=== PATIENT | female | born 1955 | race Caucasian/White ===

== ENCOUNTER → 2023-04-26 10:14 | Outpatient (REF) | payer OTHER, SELFPAY | LOC: HWWDC 10:14 | PROVIDERS: ATTENDING PHYSICIAN Nurse Practitioner Adult Health; FAMILY PHYSICIAN Family Medicine | DX: Z12.31 Encounter for screening mammogram for malignant neoplasm of breast (principal) | CPT/HCPCS: 77063; 77067 ==

== ENCOUNTER 2023-09-10 20:16 | Inpatient (IN) | payer OTHER, SELFPAY ==
[2023-09-10] VITALS (7 sets, daily range): BP systolic 139–169; BP diastolic 62–87; BMI 29.3; BMI 29.0
[2023-09-10 14:33] LABS: % Basophils 0.1 % (0-2); % Immature Granulocytes 0.3 % (0-0.5); % Lymphocytes 9.3 % (20.5-51.1); % Monocytes 7.8 % (1.7-9.3); % Neutrophils 82.5 % (42.2-75.2); Absolute Lymphocytes 0.7 10^3/uL (1.2-3.4); Absolute Monocytes 0.6 10^3/uL (0.1-0.6); Absolute Neutrophils 6.6 10^3/uL (1.4-6.5); Hematocrit 39.1 % (37.0-47.0); Hemoglobin 14.1 g/dL (12.0-16.0); Mean Corp Hgb Conc. 36.1 g/dL (33.0-37.0); Mean Corpuscular Hgb 32.3 pg (27.0-31.0); Mean Corpuscular Volume 89.5 fL (81.0-99.0); Mean Platelet Volume 9.3 fL (7.4-10.4); Nucleated Red Blood Cells % 0 %; Platelet Count 289 10^3/uL (130-400); Red Blood Cell Count 4.37 10^6/uL (4.20-5.40); Red Cell Dist. Width 12.1 % (11.5-14.5)
[2023-09-10 14:52] LABS: ALT (SGPT) 20 U/L (0-35); AST (SGOT) 28 U/L (14-36); Albumin 4.3 g/dl (3.5-5.0); Alkaline Phosphatase 145 U/L (38-126); Blood Urea Nitrogen 16 mg/dl (7-17); Calcium 9.8 mg/dl (8.4-10.2); Carbon Dioxide 25 mmol/L (22-30); Chloride 96 mmol/L (98-107); Estimated Creatinine Clearance 83 ml/min; Glucose 116 mg/dl (70-99); Sodium 130 mmol/L (135-145); Total Bilirubin 0.3 mg/dl (0.2-1.3); Total Protein 6.9 g/dl (6.3-8.2); eGFR > 60.00
--- NOTE | 2023-09-10 14:59 | ED.GENMED ---
History of Present Illness
<Deedee Jimenez PATTERN DRAFTER - Last Filed: 09/12/23 10:06>
General
Chief Complaint: Anal/Rectal Problem
Source: patient
Exam Limitations: none
Time Seen by Provider: 09/10/23 14:24
Nursing documentation reviewed up to this point in time: agreed with
History of Present Illness
History of Present Illness:
68-year-old female with history of colitis x 2 in the past, IBS, depression, scoliosis, chronic back pain, 2 spinal fusions, last one 11/28, presents stating 2 nights ago she was nauseous and started vomiting and tested positive for COVID at that
time. Her doctor prescribed Zofran which helped and she felt a little better until 2 AM this morning she developed generalized abdominal pain, broke out in a sweat, started having soft bowel movements. Went back to bed and this morning 11 AM, she
had a soft bowel movement with blood mixed in with it.
Her abdominal pain at this time is 7/10, generalized.
Past History
<Deedee Jimenez, PATTERN DRAFTER - Last Filed: 09/12/23 10:06>
Past History
ED Past Medical History: HTN and Other (Ambulatory dysfunction scoliosis back pain, previous colitis, previous diverticulosis, skin cancer with recent 5-FU topical)
ED Past Surgical History: Orthopedic (Bilateral hip replacements, bilateral knee replacements, spinal fusion due to scoliosis)
Social History
Tobacco: Non-smoker
Alcohol: None
Personal: Other ()
Living: alone
Employment: Not employed
Family History
Family History: Other (Hypertension, skin cancer)
Review of Systems
<Deedee Jimenez, PATTERN DRAFTER - Last Filed: 09/12/23 10:06>
Review of Systems
Allergies reviewed?: Yes
All Other Systems: ROS reviewed and negative except as documented in HPI and ROS
Constitutional: Denies fever
Respiratory: Denies trouble breathing
Cardiac: Denies chest pain
ABD/GI: Reports abdominal pain, nausea and bloody stools; Denies vomiting, diarrhea or anorexia
: Denies dysuria or difficulty voiding
Musculoskeletal: Reports no symptoms
Skin: Reports no symptoms
Neurological: Reports no symptoms
Phy Exam
<Deedee Jimenez, PATTERN DRAFTER - Last Filed: 09/12/23 10:06>
Physical Exam
Physical Exam:
GENERAL: No acute distress. A&Ox3.
CONSTITUTIONAL: Afebrile.
EYES: clear, conjunctivae normal
ENMT: moist mucus membranes, Pharynx nl
RESPIRATORY: Regular respirations, nonlabored, lungs clear.
CARDIOVASCULAR: Regular rate and rhythm, no murmurs, no rubs.
GI: Soft, generally tender to palpation, normal BS
MUSCULOSKELETAL: Moves with ease. Well perfused.
SKIN: Warm, dry, pink
PSYCH: Normal mood and affect. Well kept, interactive and appropriate
NEUROLOGIC: Awake, alert and oriented. No focal neurological deficits
Course
<Deedee Jimenez, PATTERN DRAFTER - Last Filed: 09/12/23 10:06>
Orders/Labs/Results
Orders:
Orders
09/10/23 14:17
C-Reactive Protein Urgent
Comment: ADD ON
CBC/With Diff [Complete Blood Count/With Diff] Urgent
Comprehensive Metabolic Panel Urgent
Lipase Urgent
Comment: ADD ON
09/10/23 14:58
Add On- LAB Urgent
Tests Added?: Lipase, CRP
CT Abd/Pel (IV only)-DH only Urgent
Comment:
Reason For Exam: gen abd pain, hx colitis x2, bloody stool
09/10/23 14:59
0.9% Sodium Chloride 1000 ml [Nss] 1,000 ml IV BOLUS
09/10/23 15:16
Ketorolac [Toradol] 15 mg IV NOW STA
Ondansetron Injectable [Zofran] 4 mg IV NOW STA
09/10/23 16:03
Lactic Acid Urgent
09/10/23 18:50
LevoFLOXacin 500 MG/100 ML [Levaquin] 500 mg in 100 ml IV NOW
MetroNIDAZOLE 500 MG/100 ML [Flagyl 500 mg] 100 ml IV NOW
09/10/23 19:52
Calprotectin, Fecal [S] Urgent
Date Specimen was Collected: 09/10/23
Time Specimen was Collected: 19:49
Giardia/Cryptosporidium Ag Urgent
AMANDA Source: ST
Specimen Description:
Date Specimen was Collected: 09/10/23
Time Specimen was Collected: 19:49
Norovirus by PCR Urgent
AMANDA Source: ST
Specimen Description:
Date Specimen was Collected: 09/10/23
Time Specimen was Collected: 19:49
STOOL [C difficile Antigen & Toxins] Urgent
AMANDA Source: Feces/Stool
Specimen Description:
Date Specimen was Collected: 09/10/23
Time Specimen was Collected: 19:49
Stool Culture Urgent
AMANDA Source: Feces/Stool
Specimen Description:
Date Specimen was Collected: 09/10/23
Time Specimen was Collected: 19:49
09/10/23 20:02
Admit/Transfer Patient As Directed
Co-Sign Provider:
Level of Care: Inpatient admission
Assign to:: Medical/Surgical
Physician / Group: jose rafael
Transfer to: Medical/Surgical
Diagnosis: severe colitis
Patient Condition: Fair
Reason for Hospitalization: severe colitis
Expected length of stay greater than two midnights?: Yes
ELOS- Estimated Length of Stay in days: 2
I certify the patient meets the requirements for IP care: Yes
PRN Pain Medication Management As Directed
May give lesser potent ordered pain med per pt: Yes
preference::
Protocol:: Medication orders for pain may be administered in a
manner that supports deferring to patient preference
when the pt is:
- Requesting an ordered lesser potent pain medication.
Least to most potent pain medications are defined
as: acetaminophen < NSAID < tramadol < opioids
(morphine, oxycodone, hydromorphone).
- Requesting a lesser dose of the same medication IF
ORDERED.
- Requesting a less intrusive route of administration
if both routes are prescribed by the provider (PO <
IV).
09/10/23 20:05
Code Status As Directed
Resuscitation Status: Full Code
09/10/23 20:10
Guaifenesin [Mucinex] 600 mg PO Q12 PRN
09/10/23 20:31
Morphine Sulfate 2 mg IV Q4HPRN PRN
Ondansetron Injectable [Zofran] 4 mg IV Q6HPRN PRN
09/10/23 21:09
0.9% Sodium Chloride 1000 ml [Nss] 1,000 ml IV 100 mls/hr
Acetaminophen [Tylenol] 650 mg PO Q6HPRN PRN
Albuterol Nebs [Ventolin Nebules] 2.5 mg INH R Q4HPRN PRN
Alprazolam [Xanax] 0.5 mg PO BIDPRN PRN
09/10/23 21:09
Activity As Directed
Activity Level: As Tolerated
Intake/ Output As Directed
Frequency: Per unit guidelines
Pneumatic Compression Sleeves As Directed
Type: Knee high
Vital Signs As Directed
Frequency: Per unit guidelines
CR Chest Portable - 1 View Urgent
Comment:
Reason For Exam: covid, r/o infiltrates
Reason Study Needs to be Portable: Unable to Transport
DX Deep Vein Thrombosis Video Routine
09/10/23 22:00
plecanatide [Trulance] See Dose Instructions PO HS
09/11/23 04:00
MetroNIDAZOLE 500 MG/100 ML [Flagyl 500 mg] 100 ml IV Q8H
09/11/23 05:02
Basic Metabolic Panel IN AM
CRP [C-Reactive Protein] IN AM
Complete Blood Count/With Diff IN AM
D-Dimer IN AM
Ferritin IN AM
Magnesium IN AM
PTT IN AM
Prothrombin Time IN AM
TSH IN AM
09/11/23 08:00
ARIPiprazole [Abilify] 5 mg PO DAILY
Venlafaxine Extended Release [Effexor Xr] 150 mg PO DAILY
09/11/23 18:00
LevoFLOXacin 750 MG/150 ML [Levaquin] 750 mg in 150 ml IV Q24H
Tolterodine Extended Release [Detrol LA] 4 mg PO QPM
Abnormal Lab Results
09/10/23
14:17
MCH 32.3 H pg
(27.0-31.0)
Absolute Neuts (auto) 6.6 H 10^3/uL
(1.4-6.5)
Absolute Lymphs (auto) 0.7 L 10^3/uL
(1.2-3.4)
Neutrophils % 82.5 H %
(42.2-75.2)
Lymphocytes % 9.3 L %
(20.5-51.1)
Sodium 130 L mmol/L
(135-145)
Chloride 96 L mmol/L
(98-107)
Glucose 116 H mg/dl
(70-99)
Alkaline Phosphatase 145 H U/L
(38-126)
09/10/23 14:17
09/10/23 14:17
Vital Signs
Initial and Last Documented VS:
Initial Vital Signs
Temp Pulse Resp BP Pulse Ox
98.3 F 70 18 169/87 99
09/10/23 12:22 09/10/23 12:22 09/10/23 12:22 09/10/23 12:22 09/10/23 12:22
Last Documented Vital Signs
Temp Pulse Resp BP Pulse Ox
98.0 F 72 16 137/70 94
09/12/23 07:10 09/12/23 08:22 09/12/23 07:10 09/12/23 08:22 09/12/23 07:10
<Emma Musa PA-C - Last Filed: 09/10/23 21:15>
Orders/Labs/Results
Orders:
Orders
09/10/23 14:17
C-Reactive Protein Urgent
Comment: ADD ON
CBC/With Diff [Complete Blood Count/With Diff] Urgent
Comprehensive Metabolic Panel Urgent
Lipase Urgent
Comment: ADD ON
09/10/23 14:58
Add On- LAB Urgent
Tests Added?: Lipase, CRP
CT Abd/Pel (IV only)-DH only Urgent
Comment:
Reason For Exam: gen abd pain, hx colitis x2, bloody stool
09/10/23 14:59
0.9% Sodium Chloride 1000 ml [Nss] 1,000 ml IV BOLUS
09/10/23 15:16
Ketorolac [Toradol] 15 mg IV NOW STA
Ondansetron Injectable [Zofran] 4 mg IV NOW STA
09/10/23 16:03
Lactic Acid Urgent
09/10/23 18:50
LevoFLOXacin 500 MG/100 ML [Levaquin] 500 mg in 100 ml IV NOW
MetroNIDAZOLE 500 MG/100 ML [Flagyl 500 mg] 100 ml IV NOW
09/10/23 19:52
Calprotectin, Fecal [S] Urgent
Date Specimen was Collected: 09/10/23
Time Specimen was Collected: 19:49
Giardia/Cryptosporidium Ag Urgent
AMANDA Source: ST
Specimen Description:
Date Specimen was Collected: 09/10/23
Time Specimen was Collected: 19:49
Norovirus by PCR Urgent
AMANDA Source: ST
Specimen Description:
Date Specimen was Collected: 09/10/23
Time Specimen was Collected: 19:49
STOOL [C difficile Antigen & Toxins] Urgent
AMANDA Source: Feces/Stool
Specimen Description:
Date Specimen was Collected: 09/10/23
Time Specimen was Collected: 19:49
Stool Culture Urgent
AMANDA Source: Feces/Stool
Specimen Description:
Date Specimen was Collected: 09/10/23
Time Specimen was Collected: 19:49
09/10/23 20:02
Admit/Transfer Patient As Directed
Co-Sign Provider:
Level of Care: Inpatient admission
Assign to:: Medical/Surgical
Physician / Group: jose rafael
Transfer to: Medical/Surgical
Diagnosis: severe colitis
Patient Condition: Fair
Reason for Hospitalization: severe colitis
Expected length of stay greater than two midnights?: Yes
ELOS- Estimated Length of Stay in days: 2
I certify the patient meets the requirements for IP care: Yes
PRN Pain Medication Management As Directed
May give lesser potent ordered pain med per pt: Yes
preference::
Protocol:: Medication orders for pain may be administered in a
manner that supports deferring to patient preference
when the pt is:
- Requesting an ordered lesser potent pain medication.
Least to most potent pain medications are defined
as: acetaminophen < NSAID < tramadol < opioids
(morphine, oxycodone, hydromorphone).
- Requesting a lesser dose of the same medication IF
ORDERED.
- Requesting a less intrusive route of administration
if both routes are prescribed by the provider (PO <
IV).
09/10/23 20:05
Code Status As Directed
Resuscitation Status: Full Code
09/10/23 20:10
Guaifenesin [Mucinex] 600 mg PO Q12 PRN
09/10/23 20:31
Morphine Sulfate 2 mg IV Q4HPRN PRN
Ondansetron Injectable [Zofran] 4 mg IV Q6HPRN PRN
09/10/23 21:09
0.9% Sodium Chloride 1000 ml [Nss] 1,000 ml IV 100 mls/hr
Acetaminophen [Tylenol] 650 mg PO Q6HPRN PRN
Albuterol Nebs [Ventolin Nebules] 2.5 mg INH R Q4HPRN PRN
Alprazolam [Xanax] 0.5 mg PO BIDPRN PRN
09/10/23 21:09
Activity As Directed
Activity Level: As Tolerated
Intake/ Output As Directed
Frequency: Per unit guidelines
Pneumatic Compression Sleeves As Directed
Type: Knee high
Vital Signs As Directed
Frequency: Per unit guidelines
CR Chest Portable - 1 View Urgent
Comment:
Reason For Exam: covid, r/o infiltrates
Reason Study Needs to be Portable: Unable to Transport
DX Deep Vein Thrombosis Video Routine
09/10/23 22:00
plecanatide [Trulance] See Dose Instructions PO HS
09/11/23 04:00
MetroNIDAZOLE 500 MG/100 ML [Flagyl 500 mg] 100 ml IV Q8H
09/11/23 05:02
Basic Metabolic Panel IN AM
CRP [C-Reactive Protein] IN AM
Complete Blood Count/With Diff IN AM
D-Dimer IN AM
Ferritin IN AM
Magnesium IN AM
PTT IN AM
Prothrombin Time IN AM
TSH IN AM
09/11/23 08:00
ARIPiprazole [Abilify] 5 mg PO DAILY
Venlafaxine Extended Release [Effexor Xr] 150 mg PO DAILY
09/11/23 18:00
LevoFLOXacin 750 MG/150 ML [Levaquin] 750 mg in 150 ml IV Q24H
Tolterodine Extended Release [Detrol LA] 4 mg PO QPM
Abnormal Lab Results
09/10/23
14:17
MCH 32.3 H pg
(27.0-31.0)
Absolute Neuts (auto) 6.6 H 10^3/uL
(1.4-6.5)
Absolute Lymphs (auto) 0.7 L 10^3/uL
(1.2-3.4)
Neutrophils % 82.5 H %
(42.2-75.2)
Lymphocytes % 9.3 L %
(20.5-51.1)
Sodium 130 L mmol/L
(135-145)
Chloride 96 L mmol/L
(98-107)
Glucose 116 H mg/dl
(70-99)
Alkaline Phosphatase 145 H U/L
(38-126)
09/10/23 14:17
09/10/23 14:17
Vital Signs
Initial and Last Documented VS:
Initial Vital Signs
Temp Pulse Resp BP Pulse Ox
98.3 F 70 18 169/87 99
09/10/23 12:22 09/10/23 12:22 09/10/23 12:22 09/10/23 12:22 09/10/23 12:22
Last Documented Vital Signs
Temp Pulse Resp BP Pulse Ox
98.0 F 72 16 137/70 94
09/12/23 07:10 09/12/23 08:22 09/12/23 07:10 09/12/23 08:22 09/12/23 07:10
<Deedee Jimenez PATTERN DRAFTER - Last Filed: 09/12/23 10:06>
MDM/Problems Addressed
Differential Diagnosis Includes:
Colitis, diverticulitis, ischemic vs inflammatory vs infectious colitis/diverticulitis
MDM/Problems Addressed:
68-year-old female with history of colitis x 2 in the past, IBS, depression, scoliosis, chronic back pain, 2 spinal fusions, last one 11/28, presents stating 2 nights ago she was nauseous and started vomiting and tested positive for COVID at that
time. Her doctor prescribed Zofran which helped and she felt a little better until 2 AM this morning she developed generalized abdominal pain, broke out in a sweat, started having soft bowel movements. Went back to bed and this morning 11 AM, she
had a soft bowel movement with blood mixed in with it.
Her abdominal pain at this time is 7/10, generalized.
Afebrile
3:30 PM:
CBC with no clinically significant abnormality
CMP with no clinically significant abnormality
Lactic normal
Case discussed with DIANA Rosario who will assume care from this point.
CT scan pending
Chronic conditions affecting care: Other (IBS)
<Emma Musa PA-C - Last Filed: 09/10/23 21:15>
MDM/Problems Addressed
MDM/Problems Addressed:
68-year-old female with history of colitis x 2 in the past, IBS, depression, scoliosis, chronic back pain, 2 spinal fusions, last one 11/28, presents stating 2 nights ago she was nauseous and started vomiting and tested positive for COVID at that
time. Her doctor prescribed Zofran which helped and she felt a little better until 2 AM this morning she developed generalized abdominal pain, broke out in a sweat, started having soft bowel movements. Went back to bed and this morning 11 AM, she
had a soft bowel movement with blood mixed in with it.
Her abdominal pain at this time is 7/10, generalized.
Afebrile
3:30 PM:
CBC with no clinically significant abnormality
CMP with no clinically significant abnormality
Lactic normal
Case discussed with DIANA Rosario who will assume care from this point.
CT scan pending
09/10/2023 1830PM
I assumed care from Dianne jimenez pending patient CT scan for abdominal pain and bloody diarrhea. Patient has previously had both infectious and ischemic colitis. The last episode was in 2021. She has known COVID infection from home test taken 2 days
ago. Currently the patient has minimal pain but she does feel like she could have a bowel movement which we will collect for sample. Her lactate was normal, hemoglobin stable, white count normal, blood pressure stable and her CT does confirm
severe colitis.
Previously patient was admitted and although they felt it was ischemic in nature she was given IV antibiotics, she will be given Levaquin and Flagyl as she has had previously and admitted to medicine.
<Emma Musa PA-C - Last Filed: 09/10/23 21:15>
*Critical Care Note
Total Time (30-74mins, 75-104mins- exclusive of procedures): Not Applicable
ED Attending Note
<Deedee Jimenez NP - Last Filed: 09/12/23 10:06>
-
Portions of this chart may have been created with voice recognition software.� Occasional wrong word or��sound alike� substitutions may have occurred due to the inherent limitations of voice recognition software.
Discharge Plan
Departure
Patient Disposition: Admit
Date of Disposition: 09/10/23
Time of Disposition: 18:48
Admit to: Med/Surg
Presentation/result/management discussed w/ accepting MD/DO: Hospitalist
Condition: Fair
Covid-19: Not Applicable
Discharge Problem:
Colitis
Interventions
Interventions:
*Risk Screen - Suicide Last Done: 09/10/23 12:22
*General Assessment Last Done: 09/10/23 12:22
*Neglect/Abuse Screening Last Done: 09/10/23 12:22
ED- Fall Risk Assessment Last Done: 09/10/23 15:08
*ED COVID-19 Vaccine History Last Done: 09/10/23 14:06
*Nursing Disposition Last Done: 09/10/23 21:10
PT-Vcdrqc-Ymyuotbidr Assessment Last Done: 09/10/23 16:00
ED-Skin Assessment Last Done: 09/10/23 15:08
Discharge Date and Time
Discharge Date/Time: 09/10/23 21:12
[2023-09-10] MEDS: NSS 1000 IV ×2 (15:28→21:35)
[2023-09-10] MEDS: TORADOL 15 MG IV (15:28)
[2023-09-10] MEDS: ZOFRAN 4 MG IV ×2 (15:29→20:39)
[2023-09-10 16:11] LABS: Lipase 52 U/L (23-300)
[2023-09-10 16:33] LABS: Lactic Acid 1.1 mmol/L (0.7-2.0)
[2023-09-10] MEDS: LEVAQUIN 100 IV (19:30)
[2023-09-10] MEDS: FLAGYL 500 MG 100 IV (19:33)
--- NOTE | 2023-09-10 20:12 | HPS.HSE ---
Family Physician
-
Family Physician: Antonio Reardon DO
Chief Complaint
-
Abdominal Pain and Bloody Diarrhea
History of Present Illness
68yo F with PMH Colitis, IBS, HTN, Anx/Depression, Hyponatremia presents to ER wtih complaint of abdominal pain and bloody diarrhea. Pt states on Monday she had N/V and general malaise. She tested positive for COVID without any known exposure
(endorses full vaccination status). Monday she developped lower banding abdominal pain and diaphoresis progressing to dark bloody diarrhea today. Endorses similar recurrence about 3-4 years ago treated with lev/flagyl. Last colo approx 3 years ago
with benign polyps reported. Denies dizziness/LH, fever, chest pain, palps, wheezing, cough, sob, dysuria, flank pain, calf or leg pain.
ER course: Pt presents wtih Tmax 99.2, other V.S.S. WBC 8.0K. Hgb 14.1 g/dL. Na 130. BUN/Cr 16/0.7. BG 116. CT a/p with severe left colitis and simple right renal cyst 2.1cm and mild diverticulosis. Stool cultures/cdiff sent. S/P Levaquin/flagyl,
15mg IV toradol, 1LNS, and 4mg IV zofran in ER.
GI: [facility]
Medical History
Past Medical History
Past Medical History: Reports Other (Colitis, IBS, HTN, Anx/Depression, Hyponatremia )
Past Surgical History: Reports Other (Lumbar Spine Fusion (11/2022), B/L Hips, B/L TKR)
Social History
Tobacco: Non-smoker
Alcohol: None
Drug: Marijuana (vapes)
Family History
Family History: Other (Mother and Father with HTN. )
Allergies / Home Medications
Allergies reflects when Allergies were last updated in [facility].
Home Medications with original date entered in [facility]
Allergy/Medication List:
Allergies
Allergy/AdvReac Type Severity Reaction Status Date / Time
cephalexin [From Keflex] Allergy Rash Verified 09/10/23 12:22
Home Medications
venlafaxine 150 mg capsule,extended release 24 hr (Effexor XR) 150 mg PO DAILY 02/22/17
alprazolam 0.5 mg tablet 0.5 mg PO BIDPRN PRN anxiety 05/17/21
acetaminophen 325 mg capsule (Tylenol) 650 mg (2 x 325 mg) PO Q6HPRN PRN PAIN #30 caps 05/20/21
aripiprazole 5 mg tablet 5 mg PO DAILY 09/10/23
lisinopril 20 mg-hydrochlorothiazide 12.5 mg tablet 2 tab PO DAILY 09/10/23
ondansetron HCl 8 mg tablet 8 mg PO Q8HPRN PRN nausea/vomiting 09/10/23
plecanatide 3 mg tablet (Trulance) 3 mg PO HS 09/10/23
teriparatide 20 mcg/dose (600 mcg/2.4 mL) subcutaneous pen injector (Forteo) 0 mcg SC DAILY@1500 09/10/23
vibegron 75 mg tablet (Gemtesa) 75 mg PO QPM 09/10/23
Review of Systems
-
A 12 point ROS was completed and negative except as noted: Yes
Physical Exam
Vital Signs
Vital Signs
Temp Pulse Resp BP Pulse Ox
98.3 F 65 18 150/68 97
09/10/23 12:22 09/10/23 14:00 09/10/23 14:00 09/10/23 14:00 09/10/23 14:00
Physical Exam
General: Well Developed, Well Nourished and No Apparent Distress
HEENT: NormoCephalic, Moist mucous membranes and Atraumatic
Respiratory: Clear
Cardiac: S1/S2 and Regular Rhythm; No Murmur or Rub
GI: Soft, Non Distended, Normal Bowel Sounds and Other (+TTP lower abdomen. Dark bloody liquid stool visualized in toilet. ); No Organomegaly
Rectal: Deferred by Provider
Musculoskeletal: No Clubbing, No Cyanosis and No Edema
Skin: Warm and Dry; No Rash
Neuro: Awake, Alert, Oriented, AO x 3 and Nonfocal/grossly intact
Hematologic/Lymphatic: No Lymphadenopathy
Psych: Calm
Laboratory Results
-
09/10/23 14:17
09/10/23 14:17
Laboratory Results
Lactic Acid 1.1 mmol/L (0.7-2.0) 09/10/23 16:03
Total Bilirubin 0.3 mg/dl (0.2-1.3) 09/10/23 14:17
AST 28 U/L (14-36) 09/10/23 14:17
ALT 20 U/L (0-35) 09/10/23 14:17
Alkaline Phosphatase 145 U/L (38-126) H 09/10/23 14:17
Lipase 52 U/L (23-300) 09/10/23 14:17
Data Reviewed
-
Diagnostic Radiology: Image Personally Visualized and interpreted
CT Scan: Image Personally Visualized and interpreted
Lab Data: Labs Reviewed by me
Old Records: Reviewed
Impression/Plan
-
Severe Colitis
- Endorses 2 days of lower banding abdominal pain with dark bloody diarrhea worsening today.
- Tmax 99.2. No leukocytosis; sepsis not POA
- CT confirming severe left colitis and mild diverticulosis
- Last colo reported 3 years ago with benign polyps - Dr. Dave
- S/P lev/flagyl in ER. Continue
- S/P 1LNS bolus in ER. Continue NS @ 100cc/hr
- Continue prn tylenol and low dose morphine for analgesia. Avoid further toradol in setting of bloody diarrhea
- Consult GI
Bloody Diarrhea - Likely 2/2 above. Follow up stool cultures/cdiff. Hgb 14.1 g/dL. HD stable. Trend for stability. No indication for transfusion at this time. Avoid chemical DVT ppx
COVID-19 - Diagnosed by home test 2 days ago. Denies sob/cough. Obtain CXR for completeness and check CRP/Ferritin/Dimer as inflammatory markers. Prn nebs and mucolytic therapy.
Hyponatremia - Na 130 on admission. Likely hypoosmotic hypovolemia in setting of diarrhea and hctz use. HCTZ on hold. Continue NS @ 100cc/hr and trend.
IBS - Continue trulance on discharge.
HTN - BP stable on home manuel-I. HCTZ held 2/2 hyponatremia and diarrheal output.
Anxiety/Depression - [place] reviewed. Continue home xanax. Continue home effexor/abilify
Osteoporosis - Resume forteo on discharge
Renal Cyst - Incidental right 2.1 cm renal cyst on imaging. Outpatient follow up advised.
[2023-09-10] MEDS: MORPHINE SULFATE 2 MG IV (20:39)
--- NOTE | 2023-09-10 21:30 | PTCARENOTE ---
Patient received from ED, AAOX3, ambulated form stretcher to bed. Apical regular, blood pressure as documented. Palpable pulses throughout, no edema noted. Lungs clear, pulse ox 98% on room air. Abdomen round, tender, with positive bowel sounds.
Due to void. #20 g in RAC, flushed and patent. Plan of care discussed
[2023-09-10] MEDS: COMPAZINE 5 MG IV (21:55)
[2023-09-11] MEDS: COMPAZINE 5 MG IV ×2 (03:55→13:04)
[2023-09-11] MEDS: FLAGYL 500 MG 100 IV ×3 (03:55→20:00)
[2023-09-11 06:18] LABS: % Basophils 0.2 % (0-2); % Eosinophils 0.1 % (0-6); % Immature Granulocytes 0.2 % (0-0.5); % Lymphocytes 12.2 % (20.5-51.1); % Monocytes 6.9 % (1.7-9.3); % Neutrophils 80.4 % (42.2-75.2); Absolute Lymphocytes 1.2 10^3/uL (1.2-3.4); Absolute Monocytes 0.7 10^3/uL (0.1-0.6); Absolute Neutrophils 7.6 10^3/uL (1.4-6.5); Hematocrit 35.3 % (37.0-47.0); Hemoglobin 12.7 g/dL (12.0-16.0); Mean Corpuscular Hgb 32.2 pg (27.0-31.0); Mean Corpuscular Volume 89.4 fL (81.0-99.0); Mean Platelet Volume 9.4 fL (7.4-10.4); Nucleated Red Blood Cells % 0 %; Platelet Count 221 10^3/uL (130-400); Red Blood Cell Count 3.95 10^6/uL (4.20-5.40); Red Cell Dist. Width 12.2 % (11.5-14.5); White Blood Cell Count 9.4 10^3/uL (4.8-10.8)
[2023-09-11 06:29] LABS: APTT 41.4 Sec (23.4-35.0)
[2023-09-11 06:33] LABS: Blood Urea Nitrogen 13 mg/dl (7-17); Calcium 8.8 mg/dl (8.4-10.2); Carbon Dioxide 22 mmol/L (22-30); Chloride 101 mmol/L (98-107); Estimated Creatinine Clearance 96 ml/min; Glucose 98 mg/dl (70-99); Magnesium 1.5 mg/dl (1.6-2.3); Potassium 3.4 mmol/L (3.5-5.1); Sodium 130 mmol/L (135-145); eGFR > 60.00
[2023-09-11 06:39] LABS: D-Dimer 4.88 ug/mlFEU (0.00-0.50)
[2023-09-11 06:52] LABS: INR 1.18; PT 14.8 Sec (11.4-14.6)
[2023-09-11 07:06] LABS: TSH 0.81 uIU/ml (0.47-4.68)
[2023-09-11 07:10] VITALS: BP 128/68
[2023-09-11 07:10] LABS: Ferritin 35.2 ng/ml (11.1-264.0)
[2023-09-11] MEDS: ZOFRAN 4 MG IV ×3 (08:20→23:46)
[2023-09-11] MEDS: ABILIFY 5 MG PO (08:20)
[2023-09-11] MEDS: ZESTRIL 40 MG PO (08:20)
[2023-09-11] MEDS: NSS 1000 IV ×2 (08:20→17:41)
[2023-09-11] MEDS: EFFEXOR XR 150 MG PO (08:20)
--- NOTE | 2023-09-11 11:16 | CON.GI ---
Addendum entered and electronically signed by Courtney Callahan MD 09/11/23 18:22:
I saw and examined the patient.
The WILDLIFE PHOTOGRAPHER or PA's note was reviewed and I agree with the note.
Comment: 68-year-old female history of infectious versus ischemic colitis in 2017 and [address] Barry. She has history of constipation. She most recently had a colonoscopy in 2021 with no inflammation seen at that time. She did have
multiple polyps and is due for repeat in 2024. She now presents with bloody diarrhea and she has these episodes where she feels sweaty with abdominal pain. She denies any upper respiratory tract symptoms. She did a COVID test which was positive.
Here she was found to have a normal white blood cell count, CRP of 28, bicarb 22, hemoglobin 12.7. She underwent a CT scan which showed severe left-sided colitis.
Differential diagnosis include but not limited to COVID-related colitis, other infectious colitis, ischemic colitis, inflammatory bowel disease as there are case reports of presenting with ulcerative colitis after diagnosis of COVID although this is
more acute in setting making it less likely.
Stool test are negative for C. difficile and stool culture is pending.
At this time recommend bowel rest, she is currently on full liquid diet, antibiotics empirically, monitor for symptomatic improvement. If she does not improve, she may need a flexible sigmoidoscopy here in the hospital. Discussed case with
hospitalist.
Original Note:
Consultation
-
Date/Time Consultation Requested: 09/11/23
Date/Time Consultation Performed: 09/11/23 @ 11:30
Requesting Provider: Dr. Lee
Performing Provider: MAXWELL Winn; Dr. Magnolia Callahan
Reason for Consultation: left sided colitis, hematochezia
Medical History
Chief Complaint / HPI
Chief Complaint: abdominal pain, bloody diarrhea
History of Present Illness:
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
complaints of abdominal pain and bloody diarrhea. We are being asked to evaluate for left-sided colitis and hematochezia. Upon review of prior records, the patient is known to Dr. Barry in our office, last seen in April 2023. At that time had
complaints of constipation and was advised to trial Trulance after failing Linzess at the highest dose. She she was of also advised to start on magnesium citrate tablets as well. She notably has a history of suspected infectious colitis in 2018
and recurrent colitis in 2021 suspicious for infectious versus ischemic colitis but favored to be ischemic at that time. She had undergone colonoscopy with Dr. Barry in September 2021 in which multiple adenomatous polyps were removed under 5 mm,
there was diverticulosis in the sigmoid colon, descending colon, splenic flexure, otherwise the colon appeared normal and random biopsies were unrevealing. She was advised to undergo a routine colonoscopy in 2024 for follow-up of multiple adenomas
that were removed. Today she reports on Monday she developed vomiting and took a COVID test that was positive. She notes that she slept the entire day and started to feel better but awoke at 2 AM on Monday morning with diarrhea that had some
small amounts of blood in it. She also had awoken with diffuse sweats and chills other without fevers. She continued with symptoms, with associated lower abdominal pain and cramping primarily on the left side. She reports having several bowel
movements a day with episodes of nausea and vomiting intermittently although these have improved. She notes 2 episodes of diarrhea as of this morning that were small in quantity with only small amounts of blood. She notes chronic constipation at
baseline and does take Trulance and magnesium although she reports this only allows her to go every 2 to 3 days despite this. She does have straining and reports she likely has hemorrhoids that bleed intermittently as well. Prior to Monday she was
overall feeling well. She otherwise denies any dizziness, lightheadedness, chest pain, shortness of breath, syncope, unintentional weight loss, or early satiety. She does note a loss of appetite given her ongoing symptoms. She denies use of
NSAIDs or blood thinners. She denies alcohol use. She denies smoking history. Her last colonoscopy was done in September 2021 as above.
Upon ER evaluation, a CT imaging of the abdomen and pelvis was obtained with IV contrast only which showed severe left-sided colitis extending from the transverse colon, the entire left colon, and proximal sigmoid colon, moderate fecal material in
the colon, and other nonurgent findings as noted below. Routine labs on admission showed new leukocytosis or anemia. Her sodium was 130 and potassium 3.4 this morning. Magnesium also low at 1.5. CRP was elevated at 28. Lactic acid was normal at
1.1. She was placed on Levaquin and Flagyl, Full liquid diet, and is pending GI evaluation. Stool studies were negative for Cdiff. Stool culture is pending.
Past Medical History
Past Medical History: HTN, Psychiatric (Anxiety, depression) and Other (Infectious colitis, IBS with chronic constipation, ambulatory dysfunction, scoliosis, chronic back pain, diverticulosis, basal cell skin cancer)
Past Surgical History: Orthopedic (Bilateral hip replacement, bilateral knee replacement, spinal fusion) and Other (Deviated septum repair, bunionectomies, Mohs procedure)
Social History
Tobacco: Non-Smoker
Alcohol: None
Drug: None
Family History
Family History: Reviewed & Not Pertinent
Allergies / Home Medications
Allergy/AdvReac Type Severity Reaction Status Date / Time
cephalexin [From Keflex] Allergy Rash Verified 09/10/23 12:22
�Medication �Instructions �Recorded
venlafaxine 150 mg 150 mg PO DAILY Mental 02/22/17
capsule,extended release 24 hr Health/Anxiety
(Effexor XR)
alprazolam 0.5 mg tablet 0.5 mg PO BIDPRN PRN anxiety 05/17/21
acetaminophen 325 mg capsule 650 mg (2 x 325 mg) PO Q6HPRN PRN 05/20/21
(Tylenol) PAIN #30 caps
aripiprazole 5 mg tablet 5 mg PO DAILY Mental Health/Anxiety 09/10/23
lisinopril 20 2 tab PO DAILY Blood Pressure 09/10/23
mg-hydrochlorothiazide 12.5 mg
tablet
ondansetron HCl 8 mg tablet 8 mg PO Q8HPRN PRN nausea/vomiting 09/10/23
plecanatide 3 mg tablet (Trulance) 3 mg PO HS Gastrointestinal Issue 09/10/23
teriparatide 20 mcg/dose (600 0 mcg SC DAILY@1500 PARATHYROID 09/10/23
mcg/2.4 mL) subcutaneous pen
injector (Forteo)
vibegron 75 mg tablet (Gemtesa) 75 mg PO QPM Urinary Issue 09/10/23
Review of Systems
-
History Source: Patient
Constitutional: Reports Night Sweats and Chills
EENT: Reports No Symptoms
Respiratory: Reports No Symptoms
Cardiac: Reports No Symptoms
Abdomen/GI: Reports Abdominal Pain, Nausea, Vomiting, Diarrhea and Bloody Stools
: Reports No Symptoms
Musculoskeletal: Reports No Symptoms
Skin: Reports No Symptoms
Neurological: Reports No Symptoms
Endocrine: Reports No Symptoms
Hematologic/Lymphatic: Reports No Symptoms
Vital Signs
Temp Pulse Resp BP Pulse Ox
98.5 F 67 18 128/68 95
09/11/23 07:10 09/11/23 07:10 09/11/23 07:10 09/11/23 07:10 09/11/23 07:10
Physical Exam
Exam
General: Well Developed, Poor Appetite and Other (mild distress due to pain/illness)
HEENT: Normocephalic, Anicteric and Atraumatic
Respiratory: Clear
Cardiac: S1/S2 and Regular Rhythm
Breast: Deferred by me
GI: Soft, Normal Bowel Sounds, Tender (LLQ) and Distended (softly distended, no rebound tenderness of guarding)
Rectal: Deferred by Provider and Other (per pt brown with small amts of bright red blood/clots)
Musculoskeletal: No Edema
Skin: Warm and Dry
Neuro: Awake, Alert and Oriented
Psych: Calm
Results
WBC 9.4 10^3/uL (4.8-10.8) 09/11/23 05:02
Hgb 12.7 g/dL (12.0-16.0) 09/11/23 05:02
Hct 35.3 % (37.0-47.0) L 09/11/23 05:02
MCV 89.4 fL (81.0-99.0) 09/11/23 05:02
Plt Count 221 10^3/uL (130-400) D 09/11/23 05:02
Absolute Neuts (auto) 7.6 10^3/uL (1.4-6.5) H 09/11/23 05:02
PT 14.8 Sec (11.4-14.6) H 09/11/23 05:02
INR 1.18 09/11/23 05:02
APTT 41.4 Sec (23.4-35.0) H 09/11/23 05:02
Sodium 130 mmol/L (135-145) L 09/11/23 05:02
Potassium 3.4 mmol/L (3.5-5.1) L 09/11/23 05:02
Chloride 101 mmol/L (98-107) 09/11/23 05:02
Carbon Dioxide 22 mmol/L (22-30) 09/11/23 05:02
BUN 13 mg/dl (7-17) 09/11/23 05:02
Creatinine 0.6 mg/dL (0.6-1.0) 09/11/23 05:02
Calcium 8.8 mg/dl (8.4-10.2) 09/11/23 05:02
Total Bilirubin 0.3 mg/dl (0.2-1.3) 09/10/23 14:17
AST 28 U/L (14-36) 09/10/23 14:17
ALT 20 U/L (0-35) 09/10/23 14:17
Alkaline Phosphatase 145 U/L (38-126) H 09/10/23 14:17
Lipase 52 U/L (23-300) 09/10/23 14:17
Diagnostic Image Results:
09/10/23 CT A/P w/IV contrast only: IMPRESSION: Severe left-sided colitis as described above. Similar to previous exam. Moderate fecal material in colon. Stable. Mild diverticulosis. Stable. Simple right renal cyst. Stable. Scoliosis and postsurgical
change of the spine and osseous pelvic structures. Hardware in the spine is new. Hardware in the hips is stable.
Prior GI Procedures:
EGD: none on file
Colonoscopy: 09/09/2021, Dr. Barry: Two 2 to 3 mm polyps removed from the cecum, One 2 mm polyp removed in the ascending colon, one 3 mm polyp removed from transverse colon, one 2 mm polyp removed in descending colon, two 2 to 4 mm polyps removed
from the sigmoid colon, diverticulosis in the entire sigmoid colon, descending colon, splenic flexure, normal mucosa in the entire examined colon, random biopsies negative for colitis. Path showing hyperplastic polyp from the sigmoid colon, sessile
serrated lesion and tubular adenoma from the cecum, tubular adenoma removed from the ascending colon, tubular adenoma removed hepatic flexure, tubular adenoma rectum and descending colon.
Assessment / Plan
-
The patient is a 68-year-old female with a past medical history significant for prior infectious colitis in (possibly ischemic the second time), IBS with chronic constipation, hypertension, anxiety, depression, who presented to the ER with
complaints of abdominal pain and bloody diarrhea after testing positive for COVID on Monday, found to have CT findings consistent with severe left-sided colitis. She has ongoing symptoms including nausea, vomiting, diarrhea, and small amounts of
hematochezia since the weekend. although improving. She has a history of infectious colitis in 2017 and possibly ischemic colitis in 2021, with colonoscopy in September 2021 showing multiple adenomatous polyps otherwise the colon appeared normal. She
has chronic constipation as well and does strain to move her bowels often, going every 2 to 3 days on average. This presentation is similar to her prior presentation in 2021. She was placed on Levaquin and Flagyl. She continues with discomfort
although she feels that her nausea and vomiting is improving along with her diarrhea. Lactic acid was normal. CRP mildly elevated 22.8. She denies syncope or loss of consciousness, and has not been hypotensive. She was placed on full liquid diet
Problem list:
-Severe left-sided colitis
-Nausea, vomiting, diarrhea
-COVID-19 +
-History of infectious colitis 2017, infectious versus ischemic colitis 2021
-Chronic IBS with constipation
-Hypokalemia
-Hypomagnesemia
-Hyponatremia
Other pertinent medical history:
-Anxiety
-Depression
-Hypertension
-Osteoarthritis
-Basal cell skin CA
Recommendation:
-Etiology of colitis likely infectious given COVID infection versus less likely ischemic versus inflammatory versus other. Reassuringly with colonoscopy in 2021 showing no inflammatory disease or signs of ischemic process
-Would continue antibiotics given history of possible ischemic colitis and severity of the colitis on CT.
-Await stool studies, C. difficile reassuringly is negative, culture pending. Will add norovirus, Giardia, crypto
-Continue to trend H&H, has been normal throughout her hospitalization and she reports minimal bleeding at this point
-Monitor stool output and for signs of ongoing bleeding
-PRN antiemetics and analgesics per hospitalist
-Full liquid diet, advance as tolerated to low residue diet
-She has an outpatient follow-up scheduled in October with our nurse practitioner Mary which she should keep. I advised her that if she improves we will have her follow-up in the office and discuss a repeat colonoscopy at that time
-If she does not have improvement here while in the hospital to consider colonoscopy versus flex sig
-Fecal calprotectin sent and is pending
-Replete electrolytes as per hospitalist
-Further management pending above
-
-
Thank you for consultation and allowing me to participate in the patient's care. Please call the [facility] during the after hours with any questions or concerns.
[2023-09-11] MEDS: KCL 40 MEQ PO (13:01)
[2023-09-11] MEDS: XANAX 0.5 MG PO (13:03)
[2023-09-11] MEDS: TYLENOL 650 MG PO (13:12)
[2023-09-11 15:00] VITALS: BP 149/71
[2023-09-11 15:46] VITALS: BP 143/74; BP 149/71; BP 150/80; PULSE 74; PULSE 79; PULSE 92
--- NOTE | 2023-09-11 16:25 | W.PN.HOSP.TC ---
Today's Communication/Plan
-
IV antibiotics
Full liquid diet.
Follow stool cultures
Follow calprotectin
Replete potassium
IV fluids
Follow BMP
Assessment / Plan
Assessment / Plan
Impression:
Severe left-sided colitis with abdominal pain and hematochezia
COVID-19 positive.
Hypokalemia
Hyponatremia.
Other conditions.
IBS constipation type.
History of left-sided colitis in 2021 with following colonoscopy.
Essential hypertension
Anxiety/depression
Osteoporosis
Renal cyst
Plan:
Severe left-sided colitis
Differential diagnosis infectious (COVID-19 positive) versus ischemic, versus inflammatory.
Hemodynamically stable with no evidence of sepsis.
Exam with relatively benign abdomen.
CT scan confirming severe left-sided colitis and mild diverticulosis.
Persistent hematochezia.
C. difficile negative
Stool culture pending
Empiric antibiotics
Bowel rest, downgrade to full liquid diet.
Stool calprotectin sent.
Gastroenterology consultation
If no reasonable improvement over the next 24 to 40 hours consider inpatient colonoscopy versus flex sig.
Hyponatremia sodium 130 on presentation.
Likely secondary to hypovolemia
Hold HCTZ
IV fluids
Hypokalemia
Replete potassium
Follow BMP
IBS - Continue trulance on discharge.
HTN - BP stable on home manuel-I. HCTZ held 2/2 hyponatremia and diarrheal output.
Anxiety/Depression - [place]. Continue home xanax. Continue home effexor/abilify
Osteoporosis - Resume forteo on discharge
Renal Cyst - Incidental right 2.1 cm renal cyst on imaging. Outpatient follow up advised.
Anticipated Discharge: 24 - 48 hours
Subjective/Interval History
-
Date of Service: September 11, 2023
Objective Data
-
Labs:
Laboratory Results
09/11/23
05:02
WBC 9.4
Hgb 12.7
Hct 35.3 L
Plt Count 221 D
PT 14.8 H
INR 1.18
APTT 41.4 H
Sodium 130 L
Potassium 3.4 L
Chloride 101
Carbon Dioxide 22
BUN 13
Creatinine 0.6
Glucose 98
Calcium 8.8
Vital Signs:
Vital Signs
Temp Pulse Resp BP Pulse Ox
98.3 F 74 18 149/71 94
09/11/23 15:00 09/11/23 15:00 09/11/23 15:00 09/11/23 15:00 09/11/23 15:00
I&O
09/10/23 09/11/23 09/12/23
06:59 06:59 06:59
Intake Total 900 / 900
Balance 900 / 900
Physical Exam
-
General: Well Developed and No Apparent Distress
HEENT: Normocephalic, Atraumatic and Moist Mucous Membranes
Respiratory: Clear to Auscultation
Cardiac: Regular Rhythm and S1/S2; Negative Murmur, Rub or Gallop
GI: Soft, Nontender, Nondistended and Normal Bowel Sounds; Negative Organomegaly
Rectal: Deferred by Provider
Musculoskeletal: No Clubbing, No Cyanosis and No Edema
Skin: Negative Rash
Neuro: Nonfocal/Grossly Intact
[2023-09-11] MEDS: LEVAQUIN 150 IV (17:43)
[2023-09-11] MEDS: DETROL LA 4 MG PO (17:44)
[2023-09-11] MEDS: MORPHINE SULFATE 2 MG IV ×2 (20:00→23:52)
--- NOTE | 2023-09-11 21:25 | PTCARENOTE ---
Pt complaining of cramping and left lower quadrant abd pain, 08/15. Pt very uncomfortable. PRN Morphine administered as ordered. Pt reports pain much improved and now a 0. Pt denies any other complaints at this time. Will continue to monitor.
[2023-09-11 23:54] VITALS: BP 143/71
[2023-09-12] MEDS: MORPHINE SULFATE 2 MG IV (04:05)
[2023-09-12] MEDS: FLAGYL 500 MG 100 IV ×3 (05:08→19:39)
--- NOTE | 2023-09-12 06:00 | PTCARENOTE ---
Pt with intermittent pain t/o the night. PRN Morphine administered as ordered. Pt also with nausea, PRN medication administered as ordered. Pt reports relief from medication, but overall no improvement in symptoms. Emotional support provided. Will
continue to monitor.
[2023-09-12 07:10] VITALS: BP 137/70
[2023-09-12] MEDS: ABILIFY 5 MG PO (08:22)
[2023-09-12] MEDS: ZESTRIL 40 MG PO (08:22)
[2023-09-12] MEDS: EFFEXOR XR 150 MG PO (08:22)
[2023-09-12] MEDS: TYLENOL 650 MG PO ×2 (09:40→17:06)
[2023-09-12] MEDS: XANAX 0.5 MG PO ×2 (10:18→21:13)
[2023-09-12 10:39] LABS: % Basophils 0.3 % (0-2); % Eosinophils 0.2 % (0-6); % Immature Granulocytes 0.3 % (0-0.5); % Lymphocytes 11.7 % (20.5-51.1); % Neutrophils 82.5 % (42.2-75.2); Absolute Lymphocytes 1.4 10^3/uL (1.2-3.4); Absolute Monocytes 0.6 10^3/uL (0.1-0.6); Absolute Neutrophils 9.6 10^3/uL (1.4-6.5); Hematocrit 33.2 % (37.0-47.0); Hemoglobin 11.8 g/dL (12.0-16.0); Mean Corp Hgb Conc. 35.5 g/dL (33.0-37.0); Mean Corpuscular Hgb 31.5 pg (27.0-31.0); Mean Corpuscular Volume 88.5 fL (81.0-99.0); Mean Platelet Volume 9.5 fL (7.4-10.4); Nucleated Red Blood Cells % 0 %; Platelet Count 232 10^3/uL (130-400); Red Blood Cell Count 3.75 10^6/uL (4.20-5.40); Red Cell Dist. Width 12.6 % (11.5-14.5); White Blood Cell Count 11.7 10^3/uL (4.8-10.8)
[2023-09-12 11:33] LABS: Blood Urea Nitrogen 6 mg/dl (7-17); Calcium 8.6 mg/dl (8.4-10.2); Carbon Dioxide 26 mmol/L (22-30); Chloride 101 mmol/L (98-107); Estimated Creatinine Clearance 96 ml/min; Glucose 94 mg/dl (70-99); Potassium 3.5 mmol/L (3.5-5.1); Sodium 130 mmol/L (135-145); eGFR > 60.00
--- NOTE | 2023-09-12 13:21 | W.PN.GI.CBS2 ---
Today's Communication / Plan
-
Etiology of colitis likely infectious given COVID infection versus less likely ischemic versus inflammatory versus other. Reassuringly with colonoscopy in 2021 showing no inflammatory disease or signs of ischemic process
-Would continue antibiotics given history of possible ischemic colitis and severity of the colitis on CT.
-Await stool cultures C. difficile, Cryptosporidium, Giardia , Norovirus negative.
Currently symptoms seems to be subsiding.
Continue Full liquid diet for now, if doing well tomorrow advance to low residue diet
-She has an outpatient follow-up scheduled in October with our nurse practitioner Mary which she should keep. Will plan for outpatient colonoscopy in 6 weeks.
-If she does not have improvement here while in the hospital to consider colonoscopy versus flex sig
-Fecal calprotectin sent and is pending
-Monitor and replete electrolytes as per hospitalist
Assessment / Plan
-
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
complaints of abdominal pain and bloody diarrhea after testing positive for COVID on Monday, found to have CT findings consistent with severe left-sided colitis. She has ongoing symptoms including nausea, vomiting, diarrhea, and small amounts of
hematochezia since the weekend. although improving. She has a history of infectious colitis in 2018 and possibly ischemic colitis in 2021, with colonoscopy in September 2021 showing multiple adenomatous polyps otherwise the colon appeared normal. She
has chronic constipation as well and does strain to move her bowels often, going every 2 to 3 days on average. This presentation is similar to her prior presentation in 2021. She was placed on Levaquin and Flagyl. She continues with discomfort
although she feels that her nausea and vomiting is improving along with her diarrhea. Lactic acid was normal. CRP mildly elevated 22.8. She denies syncope or loss of consciousness, and has not been hypotensive. She was placed on full liquid diet
Problem list:
-Severe left-sided colitis
-Nausea, vomiting, diarrhea
-COVID-19 +
-History of infectious colitis 2017, infectious versus ischemic colitis 2021
-Chronic IBS with constipation
-Hypokalemia
-Hypomagnesemia
-Hyponatremia
Other pertinent medical history:
-Anxiety
-Depression
-Hypertension
-Osteoarthritis
-Basal cell skin CA
Recommendation:
-Etiology of colitis likely infectious given COVID infection versus less likely ischemic versus inflammatory versus other. Reassuringly with colonoscopy in 2021 showing no inflammatory disease or signs of ischemic process
-Would continue antibiotics given history of possible ischemic colitis and severity of the colitis on CT.
-Await stool cultures C. difficile, Cryptosporidium, Giardia , Norovirus negative.
Currently symptoms seems to be subsiding.
Continue Full liquid diet for now, if doing well tomorrow advance to low residue diet
-She has an outpatient follow-up scheduled in October with our nurse practitioner Mary which she should keep. Will plan for outpatient colonoscopy in 6 weeks.
-If she does not have improvement here while in the hospital to consider colonoscopy versus flex sig
-Fecal calprotectin sent and is pending
-Monitor and replete electrolytes as per hospitalist
Subjective
Subjective
Date of Service: September 12, 2023
Patient reports that abdominal discomfort is much improved, had 2 small bloody bowel movements early in the morning but nothing since. Tolerating full liquid diet.
Objective
Data Reviewed
Laboratory Data:
Laboratory Results
09/12/23 10:15
09/12/23 10:15
Laboratory Results
PT 14.8 Sec (11.4-14.6) H 09/11/23 05:02
INR 1.18 09/11/23 05:02
APTT 41.4 Sec (23.4-35.0) H 09/11/23 05:02
Magnesium 1.5 mg/dl (1.6-2.3) L 09/11/23 05:02
Total Bilirubin 0.3 mg/dl (0.2-1.3) 09/10/23 14:17
AST 28 U/L (14-36) 09/10/23 14:17
ALT 20 U/L (0-35) 09/10/23 14:17
Alkaline Phosphatase 145 U/L (38-126) H 09/10/23 14:17
Lipase 52 U/L (23-300) 09/10/23 14:17
Vital Signs and I&O:
Vital Signs
Temp Pulse Resp BP Pulse Ox
98.0 F 72 16 137/70 94
09/12/23 07:10 09/12/23 08:22 09/12/23 07:10 09/12/23 08:22 09/12/23 07:10
I&O
09/11/23 09/12/23 09/13/23
06:59 06:59 06:59
Intake Total 900 / 900 1210 / 1210
Output Total 1900 / 1900
Balance 900 / 900 -690 / -690
Physical Exam
Physical Exam
GI: Soft and Non Distended (Mild distention)
--- NOTE | 2023-09-12 15:28 | CM ---
Initial assessment completed with patient who lives alone in a 1 story home with no basement and no steps to enter. 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 She has a RW and SPC in the home, no in-home services. No history of psychiatric
hospitalizations. [facility]acy is [facility] in [place] and PCP is Dr. Antonio Reardon. Anticipate no needs at discharge.
[2023-09-12 15:48] VITALS: BP 129/69
[2023-09-12 15:49] VITALS: BP 128/65; BP 129/69; BP 131/69; PULSE 75; PULSE 76; PULSE 88
--- NOTE | 2023-09-12 15:53 | W.PN.HOSP.TC ---
Today's Communication/Plan
-
Reasonable improvement with resolution of hematochezia and abdominal discomfort.
Continue IV antibiotics
Continue full liquid diet for another 24 hours.
Monitor sodium level while off IV fluids. HCTZ has been discontinued.
Assessment / Plan
Assessment / Plan
Impression:
Severe left-sided colitis with abdominal pain and hematochezia
COVID-19 positive.
Hypokalemia
Hyponatremia.
Other conditions.
IBS constipation type.
History of left-sided colitis in 2021 with following colonoscopy.
Essential hypertension
Anxiety/depression
Osteoporosis
Renal cyst
Plan:
Severe left-sided colitis
Differential diagnosis infectious (COVID-19 positive) versus ischemic, versus inflammatory.
Hemodynamically stable with no evidence of sepsis.
Exam with relatively benign abdomen.
CT scan confirming severe left-sided colitis and mild diverticulosis.
Persistent hematochezia.
C. difficile negative
Stool culture pending
Empiric antibiotics
Bowel rest, downgrade to full liquid diet.
Stool calprotectin sent.
Gastroenterology consultation
Reports improvement with less of abdominal discomfort and resolved hematochezia.
Hyponatremia sodium 130 on presentation.
Likely secondary to hypovolemia
Hold HCTZ
Sodium level stable at 130. Monitor off IV fluids.
Hypokalemia
Replete potassium
Follow BMP
IBS - Continue trulance on discharge.
HTN - BP stable on home manuel-I. HCTZ held 2/2 hyponatremia and diarrheal output.
Anxiety/Depression - [place]PD[place]. Continue home xanax. Continue home effexor/abilify
Osteoporosis - Resume forteo on discharge
Renal Cyst - Incidental right 2.1 cm renal cyst on imaging. Outpatient follow up advised.
Anticipated Discharge: 24 - 48 hours
Subjective/Interval History
-
Date of Service: September 12, 2023
Objective Data
-
Labs:
Laboratory Results
09/12/23
10:15
WBC 11.7 H
Hgb 11.8 L
Hct 33.2 L
Plt Count 232
Sodium 130 L
Potassium 3.5
Chloride 101
Carbon Dioxide 26
BUN 6 L
Creatinine 0.6
Glucose 94
Calcium 8.6
Vital Signs:
Vital Signs
Temp Pulse Resp BP Pulse Ox
98.1 F 76 16 129/69 95
09/12/23 15:48 09/12/23 15:48 09/12/23 15:48 09/12/23 15:48 09/12/23 15:48
I&O
09/11/23 09/12/23 09/13/23
06:59 06:59 06:59
Intake Total 900 / 900 1210 / 1210
Output Total 1900 / 1900
Balance 900 / 900 -690 / -690
Physical Exam
-
General: Well Developed and No Apparent Distress
HEENT: Normocephalic, Atraumatic and Moist Mucous Membranes
Respiratory: Clear to Auscultation
Cardiac: Regular Rhythm and S1/S2; Negative Murmur, Rub or Gallop
GI: Soft, Nontender, Nondistended and Normal Bowel Sounds; Negative Organomegaly
Rectal: Deferred by Provider
Musculoskeletal: No Clubbing, No Cyanosis and No Edema
Skin: Negative Rash
Neuro: Nonfocal/Grossly Intact
[2023-09-12] MEDS: DETROL LA PO ×2 (17:06→17:17)
[2023-09-12] MEDS: LEVAQUIN 150 IV (17:07)
[2023-09-12] MEDS: ZOFRAN 4 MG IV (19:41)
--- NOTE | 2023-09-12 19:52 | PTCARENOTE ---
Resumed care of pt sitting on side of bed, pt reports feeling sick to her stomach, nauseous. Pt began dry heaving/throwing up clear bile. PRN Zofran administered as ordered. pt reports pain at tolerable level. ABX infusing as ordered. Will continue
to monitor.
[2023-09-12 23:15] VITALS: BP 125/61
[2023-09-13] MEDS: FLAGYL 500 MG 100 IV ×3 (03:19→19:28)
[2023-09-13] MEDS: ZOFRAN 4 MG IV ×4 (03:19→22:11)
--- NOTE | 2023-09-13 03:26 | PTCARENOTE ---
Pt awake complaining of abd cramping and nausea. PRN Zofran administered as ordered. No other issues to report. Will continue to monitor.
[2023-09-13 05:40] LABS: % Basophils 0.3 % (0-2); % Eosinophils 0.4 % (0-6); % Immature Granulocytes 0.4 % (0-0.5); % Lymphocytes 16.4 % (20.5-51.1); % Monocytes 5.5 % (1.7-9.3); Absolute Lymphocytes 1.6 10^3/uL (1.2-3.4); Absolute Monocytes 0.5 10^3/uL (0.1-0.6); Absolute Neutrophils 7.3 10^3/uL (1.4-6.5); Hemoglobin 11.6 g/dL (12.0-16.0); Mean Corp Hgb Conc. 35.2 g/dL (33.0-37.0); Mean Corpuscular Hgb 32.4 pg (27.0-31.0); Mean Corpuscular Volume 92.2 fL (81.0-99.0); Mean Platelet Volume 9.3 fL (7.4-10.4); Nucleated Red Blood Cells % 0 %; Platelet Count 206 10^3/uL (130-400); Red Blood Cell Count 3.58 10^6/uL (4.20-5.40); Red Cell Dist. Width 12.4 % (11.5-14.5); White Blood Cell Count 9.5 10^3/uL (4.8-10.8)
[2023-09-13 06:10] LABS: Blood Urea Nitrogen 7 mg/dl (7-17); Calcium 8.5 mg/dl (8.4-10.2); Carbon Dioxide 25 mmol/L (22-30); Chloride 100 mmol/L (98-107); Estimated Creatinine Clearance 96 ml/min; Glucose 84 mg/dl (70-99); Potassium 3.6 mmol/L (3.5-5.1); Sodium 132 mmol/L (135-145); eGFR > 60.00
[2023-09-13 07:10] VITALS: BP 137/70
[2023-09-13] MEDS: EFFEXOR XR 150 MG PO (09:07)
[2023-09-13] MEDS: ZESTRIL 40 MG PO (09:07)
[2023-09-13] MEDS: ABILIFY 5 MG PO (09:07)
[2023-09-13 15:19] VITALS: BP 142/70; BP 151/81; BP 175/89; PULSE 70; PULSE 74; PULSE 91
--- NOTE | 2023-09-13 15:42 | W.PN.GI.CBS2 ---
Addendum entered and electronically signed by Linsey Barry MD 09/13/23 17:45:
I saw and examined the patient.
The [employer] or PA's note was reviewed and I agree with the note.
Comment: Patient reports some bloating after eating mashed potatoes, had brown bowel movement today without any blood. No nausea or vomiting.
Hemoglobin stable
Abdomen mildly distended
Suggested patient should hold off on low residue diet if she feels bloated or nauseous.
Continue antibiotics.
If abdomen continues to be mildly distended, will get an abdominal x-ray again tomorrow.
Given no further bleeding, hold off on flexible sigmoidoscopy, outpatient colonoscopy in 6 weeks
Will follow
Original Note:
Today's Communication / Plan
-
as per plan
Assessment / Plan
-
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
complaints of abdominal pain and bloody diarrhea after testing positive for COVID on Monday, found to have CT findings consistent with severe left-sided colitis. She has ongoing symptoms including nausea, vomiting, diarrhea, and small amounts of
hematochezia since the weekend. although improving. She has a history of infectious colitis in 2017 and possibly ischemic colitis in 2021, with colonoscopy in September 2021 showing multiple adenomatous polyps otherwise the colon appeared normal. She
has chronic constipation as well and does strain to move her bowels often, going every 2 to 3 days on average. This presentation is similar to her prior presentation in 2021. She was placed on Levaquin and Flagyl. She continues with discomfort
although she feels that her nausea and vomiting is improving along with her diarrhea. Lactic acid was normal. CRP mildly elevated 22.8. She denies syncope or loss of consciousness, and has not been hypotensive. She was placed on full liquid diet
Problem list:
-Severe left-sided colitis
-Nausea, vomiting, diarrhea-> improving
-COVID-19 +
-History of infectious colitis 2017, infectious versus ischemic colitis 2021
-Chronic IBS with constipation
-Hypokalemia
-Hypomagnesemia
-Hyponatremia
Other pertinent medical history:
-Anxiety
-Depression
-Hypertension
-Osteoarthritis
-Basal cell skin CA
Recommendation:
-Etiology of colitis likely infectious given COVID infection versus less likely ischemic versus inflammatory versus other. Reassuringly with colonoscopy in 2021 showing no inflammatory disease or signs of ischemic process
-Would continue antibiotics given history of possible ischemic colitis and severity of the colitis on CT. Currently on Levaquin and Flagyl.
-Awaiting E Coli, otherwise all stool studies negative.
-Fecal calpro pending
-Tolerating full liquids, some mild ileus like sx at the present time. If doing well tomorrow advance to low residue diet
-Outpatient follow-up scheduled in October with MAXWE[facility] Mcadams which she should keep. Will plan for outpatient colonoscopy in 6 weeks.
-If she does not have improvement here while in the hospital to consider colonoscopy versus flex sig
-Monitor and replete electrolytes as per hospitalist
Subjective
Subjective
Date of Service: September 13, 2023
Patient feels 'full' tolerating full liquid diet. Abdominal spasms much improved. Having brown loose stool x 2 today. No further blood in stool. Continues on Levaquin and Flagyl at this time. WBC is improving and is WNL. She states that she is
feeling fatigued today. She also has COVID 19 and this is her first known episode. XR of the abdomen performed for distention which shows non obstructive bowel pattern with mild colonic stool burden. Patient is passing flatus.
Objective
Data Reviewed
Laboratory Data:
Laboratory Results
09/13/23 04:52
09/13/23 04:52
Laboratory Results
PT 14.8 Sec (11.4-14.6) H 09/11/23 05:02
INR 1.18 09/11/23 05:02
APTT 41.4 Sec (23.4-35.0) H 09/11/23 05:02
Magnesium 1.5 mg/dl (1.6-2.3) L 09/11/23 05:02
Total Bilirubin 0.3 mg/dl (0.2-1.3) 09/10/23 14:17
AST 28 U/L (14-36) 09/10/23 14:17
ALT 20 U/L (0-35) 09/10/23 14:17
Alkaline Phosphatase 145 U/L (38-126) H 09/10/23 14:17
Lipase 52 U/L (23-300) 09/10/23 14:17
Vital Signs and I&O:
Vital Signs
Temp Pulse Resp BP Pulse Ox
99.0 F 70 18 142/70 95
09/13/23 15:19 09/13/23 15:19 09/13/23 15:19 09/13/23 15:19 09/13/23 15:19
I&O
09/12/23 09/13/23 09/14/23
06:59 06:59 06:59
Intake Total 1210 / 1210 1590 / 1590
Output Total 1900 / 1900 2300 / 2300
Balance -690 / -690 -710 / -710
Physical Exam
Physical Exam
HEENT: Anicteric
Cardiology: Normal Sinus Rhythm
Pulmonary: Clear
GI: Soft, Distended (mildly distended), Non Tender and Normal Bowel Sounds
Extremities: No Edema
Neuro: Non Focal
--- NOTE | 2023-09-13 15:45 | CM ---
Discharge Plan of Care: Home with no needs. Patient does not feel she will need HH services.
[2023-09-13] MEDS: LEVAQUIN 150 IV (17:23)
[2023-09-13] MEDS: TYLENOL 650 MG PO (17:27)
--- NOTE | 2023-09-13 17:27 | W.PN.HOSP.TC ---
Today's Communication/Plan
-
Advance to low residual diet.
Continue antibiotics.
Monitor sodium level with IV fluids.
Assessment / Plan
Assessment / Plan
Impression:
Severe left-sided colitis with abdominal pain and hematochezia
COVID-19 positive.
Hypokalemia
Hyponatremia.
Other conditions.
IBS constipation type.
History of left-sided colitis in 2021 with following colonoscopy.
Essential hypertension
Anxiety/depression
Osteoporosis
Renal cyst
Plan:
Severe left-sided colitis
Differential diagnosis infectious (COVID-19 positive) versus ischemic, versus inflammatory.
Hemodynamically stable with no evidence of sepsis.
Exam with relatively benign abdomen.
CT scan confirming severe left-sided colitis and mild diverticulosis.
Persistent hematochezia.
C. difficile negative
Stool negative for norovirus and Cryptosporidium and Giardia lamblia antigen
Stool negative for Salmonella, Campylobacter
Stool Shiga toxin pending
Overall improved with resolved hematochezia.
Mild episode of nausea on the morning of 09/12. Follow-up abdominal x-ray with nonobstructive bowel pattern
Trending down and normalized WBC
Empiric antibiotics for total of 7 days
Stool calprotectin sent.
Advance to low residue diet and monitor
Gastroenterology input appreciated
Hyponatremia sodium 130 on presentation.
Likely secondary to hypovolemia
Hold HCTZ
Sodium level stable at 130-132 Monitor off IV fluids.
Hypokalemia
Replete potassium
Follow BMP
IBS - Continue trulance on discharge.
HTN - BP stable on home manuel-I. HCTZ held 2/2 hyponatremia and diarrheal output.
Anxiety/Depression - [place]-PD[place] reviewed. Continue home xanax. Continue home effexor/abilify
Osteoporosis - Resume forteo on discharge
Renal Cyst - Incidental right 2.1 cm renal cyst on imaging. Outpatient follow up advised.
Anticipated Discharge: 24 - 48 hours
Subjective/Interval History
-
Date of Service: September 13, 2023
Objective Data
-
Labs:
Laboratory Results
09/13/23
04:52
WBC 9.5
Hgb 11.6 L
Hct 33.0 L
Plt Count 206
Sodium 132 L
Potassium 3.6
Chloride 100
Carbon Dioxide 25
BUN 7
Creatinine 0.6
Glucose 84
Calcium 8.5
Vital Signs:
Vital Signs
Temp Pulse Resp BP Pulse Ox
99.0 F 70 18 142/70 95
09/13/23 15:19 09/13/23 15:19 09/13/23 15:19 09/13/23 15:19 09/13/23 15:19
I&O
09/12/23 09/13/23 09/14/23
06:59 06:59 06:59
Intake Total 1210 / 1210 1590 / 1590
Output Total 1900 / 1900 2300 / 2300
Balance -690 / -690 -710 / -710
Physical Exam
-
General: Well Developed and No Apparent Distress
HEENT: Normocephalic, Atraumatic and Moist Mucous Membranes
Respiratory: Clear to Auscultation
Cardiac: Regular Rhythm and S1/S2; Negative Murmur, Rub or Gallop
GI: Soft, Nontender, Nondistended and Normal Bowel Sounds; Negative Organomegaly
Rectal: Deferred by Provider
Musculoskeletal: No Clubbing, No Cyanosis and No Edema
Skin: Negative Rash
Neuro: Awake, Alert, Oriented and Nonfocal/Grossly Intact
[2023-09-13] MEDS: DETROL LA PO (17:30)
[2023-09-13 19:36] VITALS: BP 159/76
[2023-09-13] MEDS: COMPAZINE 5 MG IV (19:38)
[2023-09-13] MEDS: XANAX 0.5 MG PO (20:36)
[2023-09-13 22:45] VITALS: BP 132/61; BP 133/63; BP 134/64; PULSE 102; PULSE 95; PULSE 96
[2023-09-14] MEDS: COMPAZINE 5 MG IV ×2 (02:37→13:36)
[2023-09-14] MEDS: FLAGYL 500 MG 100 IV ×2 (04:46→11:34)
[2023-09-14 06:24] LABS: Calprotectin, Fecal 1460 ug/g (<=49)
[2023-09-14 07:10] VITALS: BP 125/62
[2023-09-14] MEDS: ABILIFY 5 MG PO (08:16)
[2023-09-14] MEDS: EFFEXOR XR 150 MG PO (08:16)
[2023-09-14] MEDS: ZESTRIL 40 MG PO (08:16)
[2023-09-14] MEDS: ZOFRAN 4 MG IV (08:32)
--- NOTE | 2023-09-14 09:14 | W.PN.HOSP.TC ---
Today's Communication/Plan
-
d/c
Assessment / Plan
Assessment / Plan
09/14/23--d/c
Impression:
Severe left-sided colitis with abdominal pain and hematochezia
COVID-19 positive.
Hypokalemia
Hyponatremia.
Other conditions.
IBS constipation type.
History of left-sided colitis in 2021 with following colonoscopy.
Essential hypertension
Anxiety/depression
Osteoporosis
Renal cyst
Plan:
Severe left-sided colitis
Differential diagnosis infectious (COVID-19 positive) versus ischemic, versus inflammatory.
Hemodynamically stable with no evidence of sepsis.
Exam with relatively benign abdomen.
CT scan confirming severe left-sided colitis and mild diverticulosis.
Persistent hematochezia.
C. difficile negative
Stool negative for norovirus and Cryptosporidium and Giardia lamblia antigen
Stool negative for Salmonella, Campylobacter
Stool Shiga toxin pending
Overall improved with resolved hematochezia.
Mild episode of nausea on the morning of 09/12. Follow-up abdominal x-ray with nonobstructive bowel pattern
Trending down and normalized WBC
Empiric antibiotics for total of 7 days
Stool calprotectin sent.
Advance to low residue diet and monitor
Gastroenterology input appreciated
Hyponatremia sodium 130 on presentation.
Likely secondary to hypovolemia
Hold HCTZ
Sodium level stable at 130-132 Monitor off IV fluids.
Hypokalemia
Replete potassium
Follow BMP
IBS - Continue trulance on discharge.
HTN - BP stable on home manuel-I. HCTZ held 2/2 hyponatremia and diarrheal output.
Anxiety/Depression - [place]-PD[place]. Continue home xanax. Continue home effexor/abilify
Osteoporosis - Resume forteo on discharge
Renal Cyst - Incidental right 2.1 cm renal cyst on imaging. Outpatient follow up advised.
Anticipated Discharge: Today
Subjective/Interval History
-
Date of Service: September 14, 2023
pt feels much better and has no objection to d/c
Objective Data
-
Vital Signs:
max temp for 24 hours
09/14/23
07:10
Temp 98.1 F
Vital Signs
Temp Pulse Resp BP Pulse Ox
98.1 F 64 16 125/62 95
09/14/23 07:10 09/14/23 08:16 09/14/23 07:10 09/14/23 08:16 09/14/23 07:10
I&O
09/13/23 09/14/23 09/15/23
06:59 06:59 06:59
Intake Total 1590 / 1590 1810 / 1810
Output Total 2300 / 2300 1901 / 1901
Balance -710 / -710 -91 / -91
Review of Systems
-
All other systems: Reviewed and negative
Physical Exam
-
General: Well Developed, Well Nourished and No Apparent Distress
HEENT: Normocephalic and Atraumatic
Respiratory: Clear to Auscultation; Negative Wheezes or Rhonchi
Cardiac: Regular Rhythm and S1/S2; Negative Murmur
GI: Soft, Nontender, Nondistended and Normal Bowel Sounds
Musculoskeletal: No Clubbing, No Cyanosis and No Edema
Skin: Warm
Neuro: Awake
Psych: Calm
--- NOTE | 2023-09-14 09:23 | W.DCSUMMARY ---
Discharge Summary
Discharge Data
Date of Admission: 09/10/23
Date of Discharge: 09/14/23
-
Pending Results: No
Hospital Course
Primary care physician : Antonio Reardon
Principal Discharge diagnosis : Severe left-sided colitis with hematochezia, COVID-19 positivity, hypokalemia/hyponatremia
Chronic Discharge diagnosis : Irritable bowel syndrome constipation type, essential hypertension, anxiety/depression, osteoporosis, renal cyst
Hospital Course : Patient was a 68-year-old female with a history of irritable bowel syndrome with constipation who presented with abdominal pain and bloody diarrhea. She had nausea, vomiting, and general malaise. She tested positive for COVID
despite having a full vaccination series. On the Monday prior to admission, she developed lower abdominal pain and diaphoresis progressing to dark bloody diarrhea. Approximately 3 to 4 years ago she had a similar occurrence and was treated with
levofloxacin and Flagyl. In the emergency department patient was found to have severe left colitis on CAT scan. Patient was admitted.
Problem #1: Severe left-sided colitis with hematochezia. Patient was seen in consultation by GI. Stool cultures were completely negative. She was transition from IV Levaquin and Flagyl to oral Levaquin and Flagyl. She is tolerating her low
residue diet. She is stable for discharge at this time with outpatient GI follow-up.
Problem #2: COVID-19 positivity. She had no respiratory symptoms from a COVID standpoint.
Problem #3: Hypokalemia/hyponatremia. This is likely due to a combination of hydrochlorothiazide and volume depletion from diarrhea. Hydrochlorothiazide has been stopped at discharge. Lisinopril only has been prescribed for blood pressure.
Sodium improved to 132 and potassium was repleted.
Problem #4: All of the medical issues. These include irritable bowel syndrome constipation type, essential hypertension, anxiety/depression, osteoporosis, renal cyst. These medical issues were stable during her hospitalization. Medications were
continued as able. Incidental right renal cyst was found by CAT scan. Outpatient follow-up is recommended.
Patient is stable for discharge home at this time. If there are any questions regarding this dictation or her hospital stay, please do not hesitate to call. Our office number is [phone].
Important imaging findings :
CT SCAN ABDOMEN/PELVIS IMPRESSION: Severe left-sided colitis as described above. Similar to previous exam
Moderate fecal material in colon. Stable
Mild diverticulosis. Stable
Simple right renal cyst. Stable
Scoliosis and postsurgical change of the spine and osseous pelvic structures. Hardware in the spine is new. Hardware in the hips is stable.
Discharge Plan
-
Patient Disposition: Home (Routine Discharge)
Discharge Diagnosis/Procedures: Severe left-sided colitis with hematochezia likely due to COVID-19 positive, hypokalemia/hyponatremia, irritable bowel syndrome, essential hypertension, anxiety/depression, osteoporosis, renal cyst
Condition: Good
Diet: Low Residue
Additional Diets: Advance to regular as tolerated
Activity: As tolerated
Driving Restrictions: As prior to admission
Bathing Restrictions: None
Referrals:
Antonio Reardon, DO [Family Provider] - in less than 1 week
Additional Discharge Medication Instructions: You are to stop your combination medication of lisinopril�hydrochlorothiazide.
Your new medication is lisinopril only. Prescription has been sent to your pharmacy.
Prescriptions:
New
lisinopril 20 mg Tablet
40 mg PO DAILY Qty: 30 0RF
levofloxacin 750 mg tablet
750 mg PO DAILY Qty: 3 0RF
metronidazole 500 mg tablet
500 mg PO TID Qty: 9 0RF
Continued
venlafaxine [Effexor XR] 150 MG capsule,extended release 24hr
150 mg PO DAILY
alprazolam 0.5 MG tablet
0.5 mg PO BIDPRN PRN (Reason: anxiety)
Patient Comments:
09/10/2023: last filled 07/10/23, 60 tabs for 30 days from [facility]
acetaminophen [Tylenol] 325 MG capsule
650 mg PO Q6HPRN PRN (Reason: PAIN) Qty: 30 0RF
ondansetron HCl 8 mg tablet
8 mg PO Q8HPRN PRN (Reason: nausea/vomiting)
aripiprazole 5 mg tablet
5 mg PO DAILY
teriparatide [Forteo] 20 mcg/dose (600mcg/2.4mL) pen injector
0 mcg SC DAILY@1500
Trulance 3 mg tablet
3 mg PO HS
Gemtesa 75 mg tablet
75 mg PO QPM
Discontinued
lisinopril-hydrochlorothiazide 20-12.5 mg tablet
2 tab PO DAILY
Discharge Orders:
Discharge Patient (As Directed); Ordered 09/14/23
Ordered By: Evelyn Cotton
Discharge Date and Time
Print Language: GAMBIAN
[2023-09-14] MEDS: TYLENOL 650 MG PO (09:44)
--- NOTE | 2023-09-14 10:43 | CM ---
Spoke with patient via phone to discuss discharge plan; declined offer for home health
Reported that a friend will provide transport home
Plan: discharge to home today; no needs
[2023-09-14 11:45] VITALS: BP 134/73
== END 2023-09-14 14:07 | disposition home or self-care (01) | DRG 391 ==
LOC: 2 NORTH 20:16
PROVIDERS: Emergency Medicine; Internal Medicine; Physician Assistant; ADMITTING PHYSICIAN Internal Medicine; ATTENDING PHYSICIAN Internal Medicine; CONSULT PHYSICIAN Internal Medicine Gastroenterology; EMERGENCY PHYSICIAN Emergency Medicine; FAMILY PHYSICIAN Family Medicine
DX: A09 Infectious gastroenteritis and colitis, unspecified (principal); U07.1 COVID-19; E87.1 Hypo-osmolality and hyponatremia; K51.50 Left sided colitis without complications; K56.7 Ileus, unspecified; I10 Essential (primary) hypertension; F32.A Depression, unspecified; F41.9 Anxiety disorder, unspecified; M81.0 Age-related osteoporosis without current pathological fracture; N28.1 Cyst of kidney, acquired; E87.6 Hypokalemia; K58.1 Irritable bowel syndrome with constipation; K57.30 Diverticulosis of large intestine without perforation or abscess without bleeding; M41.9 Scoliosis, unspecified
CPT/HCPCS: 71045; 74018; 74177; 80048; 80053; 82728; 83605; 83690; 83735; 83993; 84443; 85025; 85379; 85610; 85730; 86140; 87045; 87046; 87324; 87328; 87329; 87427; 87449; 87798; 96361; 96374; 96375; 99285; Q9967

== ENCOUNTER → 2023-11-23 06:20 | Day surgery (SDC) | payer OTHER, SELFPAY | LOC: GI 06:20 | PROVIDERS: ATTENDING PHYSICIAN Internal Medicine Gastroenterology | DX: K59.00 Constipation, unspecified (principal); K57.30 Diverticulosis of large intestine without perforation or abscess without bleeding; D12.2 Benign neoplasm of ascending colon; D12.5 Benign neoplasm of sigmoid colon; K63.5 Polyp of colon; Z86.0101 Personal history of adenomatous and serrated colon polyps | CPT/HCPCS: 45385; 45380; 88305 ==

== ENCOUNTER 2024-02-13 06:24 | Day surgery (SDC) | payer OTHER, SELFPAY ==
[2024-01-29 12:46] VITALS: BMI 28.5
--- NOTE | 2024-02-11 18:07 | W.CON.GYNONC ---
Chief Complaint
-
VIN3
History of Present Illness
68�year�old�woman�referred�to�me�by�Mary�Volrath.�Patient�apparently�had�a�visit�[facility]�,�routine�annual�examination,
at�the�time�of�the�visit�it�was�noted�that�there�is�a�small�lesion�with�pale�discoloration�involving�left�vulva.Pap�smear�performed
�shows�negative�for�intraepithelial�lesion�or�malignancy,�biopsy�performed�[facility]�,�reveals�high�grade squamous�intraepithelial�lesion�TARAH�2�diagnosis�was�made�at�[facility].
Of�note�this�patient�has�had�prior�procedure�by�Dr.�Ernie�Slomowitz�March�2010,�left�partial�vulvectomy�had�revealed�high�grade dysplasia�TARAH�3�with�no�invasive�malignancy�identified.�At�the�same�time�she�had�a�D&C�revealing�inactive�endometrium�and
endometrial�curetting�and�benign�endocervical�cells. Past�medical�history�significant�for�basal�cell�carcinoma�chest,�osteoarthritis,�depression,�ventral�hernia,�hypertension,�benign essential�tremor,�lymphedema�right�lower�extremity
Past�surgical�history�significant�for�bilateral�hip�replacement,�hip�revision,�bilateral�knee�replacement�and�left�knee�revision,�Mohs
surgery�on�nose�and�right�clark,�spinal�fusion�with�rib�bone�grafts�thoracic�to�lumbar�in�202,�deviated�septum�repair,�bunionectomy, cone�biopsy�1989,�vulvectomy
Hospitalizations�2016�dislocation�of�hip,�2017�dislocation�of�hip,�cute�colitis,�2020�for�acute�colitis Family�history�father�with�glioblastoma�mother�with�hypertension�Brother�with�melanoma�Brother�with�colon�cancer�Sister�with
cervical�cancer Social�history�none�smoker Medications�include�Abilify,�Effexor,�Forteo
Social�History Patient�denies�ever�using�tobacco. Current�alcohol�user.�Patient�reports�an�average�of�1�drinks�per�week. Denies�any�illicit�drug�use. Occupational�Status:�Former���Retired�. Marital�Status:�Patient�is�/.
Gynecological�History Age�at�Menarche�13�years.�Age�at�menopause:�58�years.�Patient�reports�3�pregnancies.�Her�age�at�first�full�term��was�27 years. Family�Medical�History Sister���Cervical�CA,�Skin�CA Mother���Skin�CA Fatther���Skin�CA
Brother���Skin�CA
Medical History
Allergies
Allergies reflect when allergies were last updated in [employer].
cephalexin [From Keflex] Allergy (Verified 02/09/24 09:13)
Rash
Physical Exam
Physical Exam
Pelvic�Examination: External�normal�normal�right�labia�majora�and�minora,�on�the�left�labia,�there�is�a�longitudinal�linear�incision�on�labia�minora,�there�is
a�1�x�1�cm�sams�irregular�skin�lesion�mid�left�labia�minora�consistent�with�vulvar�intraepithelial�lesion.�I�do�not�identify�any�other lesions�involving�clitoral�braga�or�perineal�body.�The�remainder�of�the�exam�including,�urethra,�anus�are�normal
Vagina:�Normal�mucosa.�Atrophic�changes�are�present Cervix:�normal�appearance,�no�discharge.� Uterus:�normal�size.� Adnexa:�No�pelvic�mass.� RVE:�no�masses�or�nodularity General:�Well�developed,�well�nourished�patient.�In�no�acute�distress.
Neck:�No�thyromegaly.�No�cervical�lymphadenopathy. Lungs:�Clear�to�auscultation.�Good�air�movement�bilaterally. Cardiac:�Regular�rate.�Regular�rhythm.�No�murmurs�appreciated. Right�Breast:�No�masses�or�dimpling.�No�nipple�discharge.
Left�Breast:�No�masses�or�dimpling.�No�nipple�discharge. Abdomen:�Abdomen�is�soft.�Non�tender�to�palpation.�Non�distended.�Abd�scar(s)�are�present�in�the�low�transverse�area. Extremities:�No�edema. Hematologic/Lymphatic:�No�palpable�lymphadenopathy.
Musculoskeletal:�Normal�range�of�motion.�Strength�and�Tone�are�normal. Skin:Non�jaundiced.�No�petechia.�No�purpura.�multiple�scars�on�chest�and�back�andlegs Neurologic:�Speech�is�fluent.�Normal�gait�and�station.�Cranial�nerves�intact.
Impression / Plan
-
This�patient�has�vulvar�intraepithelial�lesion�approximately�1�cm�involving�left�labia�minora,�she�has�had�a�prior�lesion�excised�here
approximately�15�years�ago.�I�explained�to�her�the�precancerous�nature�of�this�lesion,�she�is�symptomatic�with�irritation�and burning.�
My�recommendation�is�for�left�partial�simple�vulvectomy,�we�discussed�briefly�the�course�of�surgery�and�recovery.�Surgery�will�be
done�at[facility].�She�has�an�upcoming�cataract�surgery�in�early�Mio�and�would�like�to�postpone�this�until�early
February.�I�do�not�see�any�contraindications.�Informed�consent�was�obtained�in�the�office�today.�Risks�of�surgery�including�infection
bleeding�injury�to�adjacent�organs�DVT�pulmonary�embolism�and�cardiovascular�complications�were�discussed�and�reviewed.�She�is
getting�medical�clearance�from�her�primary�care�physicians�for�the�cataract�surgery�which�should�be�also�appropriate�for�my procedure.�All�her�questions�were�answered.
[2024-02-13] VITALS (9 sets, daily range): BP systolic 117–148; BP diastolic 58–70; BMI 28.5
[2024-02-13] MEDS: NORMOSOL-R/PLASMALYTE-A 1000 IV (11:26)
[2024-02-13] MEDS: NEURONTIN 300 MG PO (11:26)
[2024-02-13] MEDS: TYLENOL 1000 MG PO (11:26)
[2024-02-13] MEDS: CELEBREX 200 MG PO (11:26)
[2024-02-13] MEDS: HEPARIN 5000 UNITS SC (11:27)
[2024-02-13] MEDS: TRANSDERM-SCOP 1 PATCH TRANSDERM (12:15)
--- NOTE | 2024-02-13 13:43 | OR.RPT ---
Operative Report
Operative Report
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
Postoperative diagnosis same
Procedure: Partial left simple vulvectomy
Surgeon: Silvestre Gusman
Assist: Yesica Angeles PA-C
Anesthesia: General LMA
Complication: None
Specimen: Left labia minora suture at 12:00
Estimated blood loss 20 cc
Procedure in detail this patient has had a prior history of TARAH treated by surgery over a decade ago. During a recent gynecologic visit she was noted to have a sams discoloration involving posterior aspect of left labia minora. Biopsy was done
revealing TARAH 2 she is brought to the operating room for definitive management. upon arrival to the operating room she was placed in supine position, general anesthesia was administered, she was intubated without any difficulty. She was placed in
lithotomy position using yellowfin stirrups, hair involving perineum and vulva was clipped, the patient was prepped with Betadine and draped. Timeout procedure was carried out. She received 2 g of Ancef. Next we soaked the labia bilaterally with
a sponge soaked in 5% acetic acid, after a few minutes it was evident that an irregular acetowhite epithelial border abnormal skin was visible involving posterior aspect of left labia. The lesion did not go to the left side or involve the perineal
body. I marked the skin with a pen and injected the area with lidocaine and epinephrine. I used the skin knife 15 blade to cut the elliptical portion of the skin. I used electrocautery to perform a skinning vulvectomy and the specimen was tagged
at 12:00 and submitted to pathology. Next good hemostasis was established and a small bleeding vessel was cauterized a series of 3-0 Monocryl suture was used in a horizontal mattress fashion to reapproximate the skin edges along the length of the
incision. Skin was cleansed, Silvadene was applied to the incision. Dressing was applied patient was awakened extubated and returned back to recovery room stable awake and extubated condition. Counts of laps instruments and needle was correct x
2. I was present and scrubbed for entire procedure as dictated above
Disposition: To PACU awake alert extubated
== END 2024-02-13 15:55 | disposition home or self-care (01) ==
LOC: SDS 06:24
PROVIDERS: ATTENDING PHYSICIAN Obstetrics & Gynecology Gynecologic Oncology; FAMILY PHYSICIAN Family Medicine
DX: D07.1 Carcinoma in situ of vulva (principal)
CPT/HCPCS: 56620; 88309; 36415; 86850; 86900; 86901; 88341; 88342; 93005

== ENCOUNTER → 2024-05-15 09:13 | Outpatient (REF) | payer OTHER, SELFPAY | LOC: HWWDC 09:13 | PROVIDERS: ATTENDING PHYSICIAN Nurse Practitioner Adult Health; FAMILY PHYSICIAN Family Medicine | DX: Z12.31 Encounter for screening mammogram for malignant neoplasm of breast (principal) | CPT/HCPCS: 77063; 77067 ==

== ENCOUNTER → 2024-06-21 06:48 | Outpatient (REF) | payer OTHER, SELFPAY | LOC: HWRAD 06:48 | PROVIDERS: ATTENDING PHYSICIAN Family Medicine | DX: S90.31XA Contusion of right foot, initial encounter (principal) | CPT/HCPCS: 73630 ==

== ENCOUNTER 2024-06-24 08:47 | Emergency (ER) | payer OTHER, SELFPAY ==
[2024-06-24 08:48] VITALS: BP 160/81
--- NOTE | 2024-06-24 09:15 | ED.GENMED ---
History of Present Illness
General
Chief Complaint: Head Injury
Source: patient
Exam Limitations: none
Time Seen by Provider: 06/24/24 09:14
Nursing documentation reviewed up to this point in time: agreed with
History of Present Illness
History of Present Illness:
68-year-old female with history of bilateral hip and bilateral knee replacements, spinal fusion for scoliosis, bunionectomies, hammertoes, HTN, lymphedema right leg, anxiety/depression, diverticulitis presents for vomiting since 3 a.m. 'small
amounts' feels nauseous. Fell back asleep, woke again at 6 a.m. nauseous and small amounts of bile emesis. Last emesis 5 minutes ago.
7 days ago foot slipped off edge of her concrete patio, she fell striking left forehead on the cement. No LOC, denies headache or any other injury. Over next few days has developed ecchymosis of left forehead and down left cheek.
Saw PCP Dr. Reardon 4 days ago and placed on new BP med and she started it 2 days ago.
Had out pt xray of right foot 3 days ago and has appt with orthopedics at 11 a.m today (which she cancelled) for nondisplaced fracture of base of 5th metatarsal.
Past History
Past History
ED Past Medical History: HTN and Other (Ambulatory dysfunction scoliosis back pain, previous colitis, previous diverticulosis, skin cancer with 5-FU topical)
ED Past Surgical History: Orthopedic (Bilateral hip replacements, bilateral knee replacements, spinal fusion due to scoliosis)
Social History
Tobacco: Non-smoker
Alcohol: None
Drug: Marijuana (daily medical marijuana)
Personal: Single ()
Living: alone
Employment: Not employed
Family History
Family History: Other (Hypertension, skin cancer)
Review of Systems
Review of Systems
Allergies reviewed?: Yes
All Other Systems: ROS reviewed and negative except as documented in HPI and ROS
Constitutional: Denies fever, fatigue or chills
EENT: Reports no symptoms
Respiratory: Denies trouble breathing
Cardiac: Denies chest pain or syncope
ABD/GI: Reports nausea, vomiting and constipated (chronic on Linzess ); Denies abdominal pain, diarrhea, bloody stools or black stools
: Reports frequency ('I always go a lot' takes Gemtesa); Denies dysuria, flank pain or difficulty voiding
Musculoskeletal: Denies neck pain
Skin: Reports other (bruising left side of face.)
Neurological: Reports no symptoms
Phy Exam
Physical Exam
Physical Exam:
GENERAL: No acute distress. A&Ox3.
CONSTITUTIONAL: Afebrile.
Head/face: No significant orbital, or other facial bones tenderness
EYES: clear, conjunctivae normal, PERRL, No hemotympanum, EOMs intact.
ENMT: moist mucus membranes, Pharynx nl
RESPIRATORY: Regular respirations, nonlabored, lungs clear.
CARDIOVASCULAR: Regular rate and rhythm, no murmurs, no rubs.
GI: Soft, nontender, normal BS
MUSCULOSKELETAL: Mild tenderness, no swelling or redness base right 5th metatarsal. Moves with ease. Well perfused.
SKIN: Warm, dry, pink
PSYCH: Normal mood and affect. Well kept, interactive and appropriate
NEUROLOGIC: Awake, alert and oriented. Speech clear, CN 2-12 intact. No focal neurological deficits
Course
Orders/Labs/Results
Orders:
Orders
06/24/24 09:27
CT Head W/o Iv Contrast Urgent
Comment:
Reason For Exam: N/V ONE WEEK AFTER HEAD INJURY
0.9% Sodium Chloride 500 ml [Nss] 500 ml IV BOLUS
Ondansetron Injectable [Zofran] 4 mg IV NOW STA
06/24/24 09:58
Complete Blood Count/With Diff Urgent
Comprehensive Metabolic Panel Urgent
Lipase Urgent
06/24/24 10:30
Ortho Boot Right- Treatment ONCE
Short or tall?: Short
06/24/24 11:55
Urinalysis Reflex To Culture Urgent
Date Specimen was Collected: 06/24/24
Time Specimen was Collected: 11:51
Urine Microscopic Reflex Cult Urgent
Urine Culture Urgent
AMANDA Source: U
Specimen Description:
Date Specimen was Collected: 06/24/24
Time Specimen was Collected: 11:51
Abnormal Lab Results
06/24/24 06/24/24
09:58 11:55
MCH 31.6 H pg
(27.0-31.0)
Absolute Lymphs (auto) 0.8 L 10^3/uL
(1.2-3.4)
Neutrophils % 80.9 H %
(42.2-75.2)
Lymphocytes % 12.6 L %
(20.5-51.1)
BUN 18 H mg/dl
(7-17)
Glucose 120 H mg/dl
(70-99)
Leukocyte Esterase Rfl 1+ A
(Negative)
Urine Bacteria (Reflex) Few A
(Negative)
Urine Albumin (Reflex) 1+ A
(Neg - Trace)
06/24/24 09:58
06/24/24 09:58
Vital Signs
Initial and Last Documented VS:
Initial Vital Signs
Temp Pulse Resp BP Pulse Ox
97.9 F 77 16 160/81 98
06/24/24 08:48 06/24/24 08:48 06/24/24 08:48 06/24/24 08:48 06/24/24 08:48
Last Documented Vital Signs
Temp Pulse Resp BP Pulse Ox
97.9 F 77 16 158/86 96
06/24/24 08:48 06/24/24 13:08 06/24/24 13:08 06/24/24 13:08 06/24/24 13:08
MDM/Problems Addressed
Differential Diagnosis Includes:
head bleed, UTI,
Fx foot
MDM/Problems Addressed:
68-year-old female with history of bilateral hip and bilateral knee replacements, spinal fusion for scoliosis, bunionectomies, hammertoes, HTN, lymphedema right leg, anxiety/depression, diverticulitis presents for vomiting since 3 a.m. 'small
amounts' feels nauseous. Fell back asleep, woke again at 6 a.m. nauseous and small amounts of bile emesis. Last emesis 5 minutes ago.
7 days ago foot slipped off edge of her concrete patio, she fell striking left forehead on the cement. No LOC, denies headache or any other injury. Over next few days has developed ecchymosis of left forehead and down left cheek.
Saw PCP Dr. Reardon 4 days ago and placed on new BP med and she started it 2 days ago.
Had out pt xray of right foot 3 days ago and has appt with orthopedics at 11 a.m today (which she cancelled) for nondisplaced fracture of base of 5th metatarsal.
New BP med is Norvasc 5 mg OD
Xray right foot reviewed and radiology report read: Nondisplaced slightly comminuted transverse fracture at the base of the fifth metatarsal.
10:30 AM:
CBC, CMP with no clinically significant abnormality
Head CT reviewed, radiology report reviewed: No acute intracranial abnormality
12:30 p.m.
U/A neg
Pt is not comfortable with the ortho boot, she has been walking around with her sandals comfortably for the past week since the fracture, it is reasonable to apply cast shoe until ortho f/u
She will go back to Dr. Craig as initially planned
She has been OOB and ambulating well with the fracture/cast shoe
Chronic conditions affecting care: HTN
*Critical Care Note
Total Time (30-74mins, 75-104mins- exclusive of procedures): Not Applicable
Patient Management
Social determinants of health affecting care: Living situation (Lives alone)
ED Attending Note
-
Portions of this chart may have been created with voice recognition software.� Occasional wrong word or��sound alike� substitutions may have occurred due to the inherent limitations of voice recognition software.
Discharge Plan
Departure
Patient Disposition: Home (Routine Discharge)
Date of Disposition: 06/24/24
Time of Disposition: 12:30
Patient with high blood pressure during this ER visit?: No
Condition: Good
Discharge Problem:
Contusion of face, Fracture of base of fifth metatarsal bone, Fall from slip, trip, or stumble
Instructions: Head Injury in Adults (DC), Contusion (DC), [place] diet, Foot Fracture
Prescriptions:
No Action
venlafaxine [Effexor XR] 150 MG capsule,extended release 24hr
150 mg PO DAILY
alprazolam 0.5 MG tablet
0.5 mg PO BIDPRN PRN (Reason: anxiety)
Patient Comments:
09/10/2023: last filled 07/10/23, 60 tabs for 30 days from [facility]
acetaminophen [Tylenol] 325 MG capsule
650 mg PO Q6HPRN PRN (Reason: PAIN) Qty: 30 0RF
aripiprazole 5 mg tablet
5 mg PO DAILY
Trulance 3 mg tablet
3 mg PO HS
Gemtesa 75 mg tablet
75 mg PO QPM
lisinopril 20 mg Tablet
40 mg PO DAILY Qty: 30 0RF
alendronate 70 mg Tablet
70 mg PO TH
calcium carbonate [Calcium 600] 600 mg calcium (1,500 mg) Tablet
600 mg PO BID
magnesium citrate 125 mg Capsule
125 mg PO DAILY
multivitamin Tablet
1 tab PO DAILY
cholecalciferol (vitamin D3) [Vitamin D3] 125 mcg (5,000 unit) Tablet
125 mcg PO DAILY
Vicks Sinex (PE) 0.5 % [place],Non-Aerosol
1 spray INTRANASAL PRN PRN (Reason: congestion)
Referrals:
Antonio Reardon DO [Family Provider] -
Ozzie Craig DPM [Active] - Next open appointment
Activity Restrictions/Additional Instructions:
As we discussed, your head CT shows nothing worrisome
Stick with a bland diet until you are no longer nauseous.
Your workup here today shows nothing worrisome
Wear the orthopedic shoe at all times when up and around until further instructed by the orthopedic doctor.
Interventions
Interventions:
*Risk Screen - Suicide Last Done: 06/24/24 10:08
*General Assessment Last Done: 06/24/24 10:08
*Neglect/Abuse Screening Last Done: 06/24/24 10:08
*ED- Fall Risk Assessment Last Done: 06/24/24 10:09
*ED COVID-19 Vaccine History Last Done: 06/24/24 10:09
*Nursing Disposition Last Done: 06/24/24 13:10
ED- Neurological Assessment Last Done: 06/24/24 10:05
ED-Skin Assessment Last Done: 06/24/24 10:05
Discharge Date and Time
Discharge Date/Time: 06/24/24 13:10
Print Language: KINYARWANDA
[2024-06-24] MEDS: ZOFRAN 4 MG IV (09:56)
[2024-06-24] MEDS: NSS 500 IV (09:56)
[2024-06-24 10:07] LABS: % Basophils 0.3 % (0-2); % Eosinophils 0.6 % (0-6); % Immature Granulocytes 0.1 % (0-0.5); % Lymphocytes 12.6 % (20.5-51.1); % Monocytes 5.5 % (1.7-9.3); % Neutrophils 80.9 % (42.2-75.2); Absolute Lymphocytes 0.8 10^3/uL (1.2-3.4); Absolute Monocytes 0.4 10^3/uL (0.1-0.6); Absolute Neutrophils 5.4 10^3/uL (1.4-6.5); Hemoglobin 13.5 g/dL (12.0-16.0); Mean Corp Hgb Conc. 34.6 g/dL (33.0-37.0); Mean Corpuscular Hgb 31.6 pg (27.0-31.0); Mean Corpuscular Volume 91.3 fL (81.0-99.0); Mean Platelet Volume 8.8 fL (7.4-10.4); Nucleated Red Blood Cells % 0 %; Platelet Count 312 10^3/uL (130-400); Red Blood Cell Count 4.27 10^6/uL (4.20-5.40); White Blood Cell Count 6.7 10^3/uL (4.8-10.8)
[2024-06-24 10:20] LABS: ALT (SGPT) 21 U/L (0-35); AST (SGOT) 22 U/L (14-36); Albumin 4.5 g/dl (3.5-5.0); Alkaline Phosphatase 80 U/L (38-126); Blood Urea Nitrogen 18 mg/dl (7-17); Calcium 9.6 mg/dl (8.4-10.2); Carbon Dioxide 28 mmol/L (22-30); Chloride 103 mmol/L (98-107); Glucose 120 mg/dl (70-99); Lipase 75 U/L (23-300); Potassium 4.2 mmol/L (3.5-5.1); Sodium 136 mmol/L (135-145); Total Bilirubin 0.3 mg/dl (0.2-1.3); Total Protein 7.2 g/dl (6.3-8.2); eGFR > 60.00
[2024-06-24 11:23] VITALS: BP 142/73
--- NOTE | 2024-06-24 11:33 | EDRN ---
Pt in BR attempting urine sample at this time Post R short boot placment.
[2024-06-24 12:19] LABS: Urine Albumin 1+ (Neg - Trace); Urine Bilirubin Negative (Negative); Urine Character Clear (Clear); Urine Color Yellow; Urine Glucose Negative (Negative); Urine Ketone Negative (Negative); Urine Leukocyte 1+ (Negative); Urine Nitrite Negative (Negative); Urine Occult Blood Negative (Negative); Urine Urobilinogen Negative (Neg - 1+)
[2024-06-24 12:36] LABS: Urine Bacteria Few (Negative); Urine Red Blood Cell 0-2 /HPF (0-2)
--- NOTE | 2024-06-24 13:00 | EDRN ---
Short boot removed and cast shoe placed on pt. Pt did not want short boot.
[2024-06-24 13:08] VITALS: BP 158/86
== END 2024-06-24 13:10 | disposition home or self-care (01) ==
LOC: EMR 08:47
PROVIDERS: Registered Nurse; EMERGENCY PHYSICIAN Emergency Medicine; FAMILY PHYSICIAN Family Medicine
DX: S00.83XA Contusion of other part of head, initial encounter (principal); S92.354A Nondisplaced fracture of fifth metatarsal bone, right foot, initial encounter for closed fracture; W01.0XXA Fall on same level from slipping, tripping and stumbling without subsequent striking against object, initial encounter; I10 Essential (primary) hypertension; F41.9 Anxiety disorder, unspecified; M41.9 Scoliosis, unspecified; Z82.49 Family history of ischemic heart disease and other diseases of the circulatory system; Z85.828 Personal history of other malignant neoplasm of skin; Z96.643 Presence of artificial hip joint, bilateral; Z96.653 Presence of artificial knee joint, bilateral; Z98.1 Arthrodesis status
CPT/HCPCS: 99284; 96374; 70450; 80053; 81003; 81015; 83690; 85025; 87086

== ENCOUNTER → 2024-09-03 11:21 | Outpatient (REF) | payer OTHER, SELFPAY | LOC: HWRAD 11:21 | PROVIDERS: ATTENDING PHYSICIAN Internal Medicine; FAMILY PHYSICIAN Family Medicine | DX: K40.30 Unilateral inguinal hernia, with obstruction, without gangrene, not specified as recurrent (principal); Z98.891 History of uterine scar from previous surgery | CPT/HCPCS: 76705 ==

== ENCOUNTER → 2024-09-13 07:04 | Outpatient (REF) | payer OTHER, SELFPAY | LOC: HWRAD 07:04 | PROVIDERS: ATTENDING PHYSICIAN Podiatrist Foot & Ankle Surgery; FAMILY PHYSICIAN Family Medicine | DX: M76.822 Posterior tibial tendinitis, left leg (principal) | CPT/HCPCS: 73630 ==

== ENCOUNTER 2024-10-18 06:16 | Day surgery (SDC) | payer OTHER, SELFPAY ==
[2024-10-08 14:10] VITALS: BMI 30.1
[2024-10-18] VITALS (9 sets, daily range): BP systolic 130–142; BP diastolic 63–76; BMI 30.1
[2024-10-18] MEDS: TYLENOL 1000 MG PO (08:37)
[2024-10-18] MEDS: NORMOSOL-R/PLASMALYTE-A 1000 IV (08:38)
[2024-10-18] MEDS: HEPARIN 5000 UNITS SC (09:23)
--- NOTE | 2024-10-18 12:18 | W.IMMPOSTOP ---
Surgical Immed Post Op Note
-
Primary Surgeon: Deshawn
Assisting: Tomás DOLAN
Pre-op Diagnosis: Right spigelian hernia, left inguinal hernia
Post-op Diagnosis: Same
Procedure Performed: Robot assisted laparoscopic repair of right spigelian and left inguinal hernias
Anesthesia Type: GETA
Specimen / Cultures: None
Estimated Blood Loss: 10cc
Complications: None immediate
Operative Findings: 4cm x 1cm right spigelian defect, indirect and femoral defects on the left groin; [id number] bard soft mesh to spigelian defect, XL MID 3D Max to left groin
--- NOTE | 2024-10-18 12:21 | OR.RPT ---
Operative Report
Operative Report
Primary Surgeon: Deshawn
Assisting: Tomás DOLAN
Pre-op Diagnosis: Right spigelian hernia, left inguinal hernia
Post-op Diagnosis: Same
Procedure Performed: Robot assisted laparoscopic repair of right spigelian and left inguinal hernias
Anesthesia Type: GETA
Specimen / Cultures: None
Estimated Blood Loss: 10cc
Complications: None immediate
Operative Findings: 4cm x 1cm right spigelian defect, indirect and femoral defects on the left groin; [id number] bard soft mesh to spigelian defect, XL MID 3D Max to left groin
DOS: 10/18/24
Indications:� This 69F developed a right spigelian hernia. On imaging a left inguinal hernia was identified. Repair was thus indicated for both hernias. Robot assisted laparoscopic repair was planned.
Description of procedure:� The patient was taken to the operating room and positioned into supine position. The patient�s abdomen was prepped and draped in standard sterile fashion. A time-out was completed verifying correct patient, procedure,
site, positioning, and implants and special equipment prior to beginning this procedure.� A stab incision was made in the left upper quadrant, a Veress needle was inserted and proper position was confirmed by aspiration and saline drop test.
Following this, pneumoperitoneum was created with insufflation of carbon dioxide to 12 mmHg. Then a 8mm robotic trocar was inserted above and to the right of the umbilicus. A laparoscope was inserted and the area of initial trocar entry and Veress
needle placement were both inspected and no injuries were found. Two 8mm trocars were then placed lateral to the rectus sheath under direct visualization.
Both inguinal regions were inspected and the median umbilical ligament, medial umbilical ligament, and lateral umbilical fold were identified. Attention was turned to the left groin. The peritoneum was incised transversely above the defect and a
flap was developed in the caudad direction. Sung�s ligament was identified ultimately dissected to its junction with the iliac vein and the space of Retzius was developed bluntly. The dissection was continued inferiorly to the iliopubic tract,
with care taken to avoid injury to the femoral branch of the genitofemoral nerve and the lateral femoral cutaneous nerve. The round ligament was parietalized and sacrficied low near the peritoneal interface.
The direct space was inspected and a hernia defect was not identified. The femoral space was inspected and a defect was identified with no hernia contents. The indirect space was inspected and a small defect was identified and reduced. The canal
was inspected and a moderate lipoma was identified and reduced.
Extra large left MID 3D max mesh was passed through a trocar. The mesh was placed into the preperitoneal space and moved into position to lay flat and completely cover the direct, indirect, and femoral spaces with overlap at the midline. The mesh
was secured into place using 2-0 vicryl suture to Sung�s ligament medially and laterally. Care was taken to avoid the inferolateral triangles containing the iliac vessels and genital nerves. The peritoneal flap was closed over the mesh and secured
with 2-0 monocryl stratafix suture in similar positions of safety. A 14g angiocath was used to decompress the preperitoneal space revealing good seal and all mesh in good position without folding or curling.
Attention was turned to the right lower quadrant. The peritoneum was incised several cm superior to the defect and a peritoneal flap was developed in transverse and caudad directions using blunt and sharp dissection and judicious electrocautery.
The defect measured as above. The defect was closed with 2-0 PDS stratafix suture. The mesh was trimmed to size and passed into the abdomen, centered on the defect and secured to the abdominal wall with 2-0 vicryl suture at cardinal points. The flap
was closed over the the mesh and secured to the abdominal wall with running 2-0 monocryl stratafix suture. A 14g angiocath was used to decompress the preperitoneal space revealing good seal and all mesh in good position without folding or curling.
After ensuring adequate hemostasis, the trocars were removed and the pneumoperitoneum allowed to escape. The trocar incisions were closed at the skin level using 4-0 monocryl and topical skin adhesive. All counts were correct. The patient tolerated
the procedure well and was taken to the postanesthesia care unit in stable condition.
The assistance of Tomás DOLAN was required due to the complexity of the procedure. During the procedure she assisted with retraction, resection, and closure of the wound.
[2024-10-18] MEDS: ZOFRAN 4 MG IV (12:45)
[2024-10-18] MEDS: COMPAZINE 5 MG IV (13:04)
[2024-10-18] MEDS: DILAUDID 0.25 MG IV (13:15)
[2024-10-18] MEDS: TYLENOL 650 MG PO (14:50)
== END 2024-10-18 15:20 | disposition home or self-care (01) ==
LOC: SDS 06:16
PROVIDERS: ATTENDING PHYSICIAN Surgery; FAMILY PHYSICIAN Family Medicine
DX: K40.90 Unilateral inguinal hernia, without obstruction or gangrene, not specified as recurrent (principal); K43.2 Incisional hernia without obstruction or gangrene
CPT/HCPCS: 49650; 36415; 93005; C1781; J1335